=== PATIENT | male | born 1970 | race Caucasian/White ===

== ENCOUNTER 2023-06-28 10:50 | Inpatient (IN) | payer SELFPAY ==
[2023-06-28 10:52] VITALS: BP 127/85; PULSE 98; RESP 16; TEMP 35.8; O2SAT 96; BMI 36.6
--- NOTE | 2023-06-28 11:02 | EKG12_ITS ---
Test Reason : sob Blood Pressure : / mmHG Vent. Rate : 101 BPM Atrial Rate : 101 BPM P-R Int : 144 ms QRS Dur : 086 ms QT Int : 402 ms P-R-T Axes : 030 -28 -33 degrees QTc Int : 521 ms Sinus tachycardia T wave abnormality, consider anterior ischemia Abnormal ECG Confirmed by CORNELIO WINCHESTER ([id number]), medical transcription editor FREDA GAN ([id number]) on 07/01/2023 2:12:02 PM Referred By: Jorge Confirmed By:CORNELIO WINCHESTER
--- NOTE | 2023-06-28 11:03 | EX.ED.DYSGE1 ---
HPI <COLBY Santiago - Last Filed: 06/28/23 12:45> History of Present Illness Chief Complaint: Cough Narrative Narrative: 52-year-old male presents with 2 weeks of productive cough and dyspnea on exertion. His cough is worse in the morning. He denies fever chills but states he has had a lot of fatigue and congestion. He [id number] Mucinex without relief. He is from [facility] and states he has metastatic prostate cancer and had surgery about a year ago and now takes a medication for it. He is also on Xarelto for history of DVT. He denies history of smoking or asthma/COPD. No chest pain. PFSH <COLBY Santiago - Last Filed: 06/28/23 12:45> PFSH Allergy/AdvReac Type Severity Reaction Status Date / Time No Known Allergies Allergy Verified 06/28/23 10:54 Social History Smoking Status: Never smoker ROS <COLBY Santiago - Last Filed: 06/28/23 12:45> ROS ED ROS Narrative Constitutional: Negative for fever, chills. CVS: Negative for palpitations, chest pain, syncope. Respiratory: Positive for shortness of breath, cough. Negative for orthopnea. GI:Positive for diarrhea. Negative for abdominal pain, nausea, vomiting. Neuro: Negative for headache. Skin: Negative for rash. EXAM <COLBY Santiago - Last Filed: 06/28/23 12:45> Physical Exam Narrative Exam Narrative: CONST: Patient sitting in no acute distress. EYES: Normal inspection. NECK: Normal inspection. No JVD or retractions. RESP: No respiratory distress, CTAB. CVS: Regular rate and rhythm, no murmur, no gallop. SKIN: Color normal, no rash, warm, dry, intact. EXTREMITIES: Normal appearance, no pedal edema, no calf tenderness. NEURO: Oriented x4. PSYCH: Normal affect. Const Vital Signs: 06/28/23 10:52 06/28/23 10:51 06/28/23 11:22 Temperature 96.5 F L Temperature Source Temporal Pulse Rate 98 Respiratory Rate 16 Respiratory Effort Normal Short of Breath Respiratory Depth Normal Respiratory Pattern Normal Blood Pressure 127/85 H Blood Pressure Mean 99 Pulse Ox 96 Oxygen Delivery Method Room Air Room Air <Dr. Valentín Brown MD - Last Filed: 06/28/23 11:49> Physical Exam Const Vital Signs: 06/28/23 10:52 06/28/23 10:51 06/28/23 11:22 Temperature 96.5 F L Temperature Source Temporal Pulse Rate 98 Respiratory Rate 16 Respiratory Effort Normal Short of Breath Respiratory Depth Normal Respiratory Pattern Normal Blood Pressure 127/85 H Blood Pressure Mean 99 Pulse Ox 96 Oxygen Delivery Method Room Air Room Air [facility] <COLBY Santiago - Last Filed: 06/28/23 12:45> [facility] Narrative Medical decision making narrative: Patient was evaluated for cough and exertional dyspnea. He appears well and nontoxic. Vital signs within normal limits. He speaking in full sentences in no respiratory distress. Heart is regular rate and rhythm with no murmurs. Lungs clear. CBC and BMP unremarkable for creatinine of 1.35 with no prior for comparison. Troponin is 293. He has no chest pain but is having significant exertional dyspnea. His EKG is sinus tachycardia at 101 bpm with nonspecific T wave inversions. No STEMI criteria. CXR shows no acute process. Due to elevated troponin and exertional dyspnea patient will need admitted for cardiac work-up. I do not suspect PE as he has an IVC filter and is compliant with Xarelto. Telegraphic Service Dispatcher was paged and case discussed with hospitalist for admission. Differential: Viral URI, pneumonia, effusion, ACS I have personally performed a face to face assessment of the patient and have reviewed the ROBERT Note. I performed a substantive portion of the visit including all aspects of the following. My shah findings include: History is 52-year-old male history of prostate cancer with bony mets. On blood thinner secondary to DVT and has a filter. Complaining of cough and congestion. Really denies any chest pain. No hemoptysis. Says he is having exertional shortness of breath. No cardiac history. Non-smoker. Exam is [52-year-old male no acute distress. Vital signs stable afebrile. Pulse ox 96% on room air no hypoxia. H EENT exam unremarkable. Neck nontender no JVD. Lungs clear to auscultation bilaterally. Heart regular rhythm rate about 95 no murmur. Chest wall nontender. Abdomen soft nontender. Moving all 4 extremities. Calves are nontender without edema or cords. He is awake and alert. No focal motor deficits.] Medical Decision Making [52-year-old male with prostate CA with bony mets with shortness of breath. URI symptoms. Pneumonia versus anemia versus cardiac etiology versus other. He is already on blood thinners and has a Towner filter.] Other additions or changes: [None] Lab Data Labs: Laboratory Results - last 24 hr 06/28/23 11:10 WBC 10.2 RBC 5.15 Hgb 14.7 Hct 45.4 MCV 88.2 MCH 28.5 MCHC 32.4 RDW Std Deviation 46.5 H RDW Coeff of [place] 14.6 Plt Count 151 MPV 10.9 Immature Gran % (Auto) 1.400 H Neut % (Auto) 77.2 H Lymph % (Auto) 13.4 L [place] % (Auto) 7.4 Eos % (Auto) 0.2 Baso % (Auto) 0.4 Absolute Neuts (auto) 7.9 H Absolute Lymphs (auto) 1.37 Nucleated RBC % 0 Sodium 139 Potassium 4.3 Chloride 106 Carbon Dioxide 26.0 Anion Gap 7 BUN 25 H Creatinine 1.35 H Estim Creat Clear Calc 61.93 Est GFR (MDRD) Af Amer 71 Est GFR (MDRD) Non-Af 59 L BUN/Creatinine Ratio 18.5 Glucose 136 H Calcium 10.0 Troponin I High Sens 293 H* Radiography Diagnostic Testing: Clinical Impression(s) from Imaging Studies Chest X-Ray 06/28/23 11:28 IMPRESSION: Normal x-ray examination of the chest. Electronically Signed: Berhane Kee MD at 12:01 EDT , EKG Initial EKG: Attestation: I personally reviewed and interpreted this EKG as follows: Comments: Sinus tachycardia at 101 bpm Normal intervals, no STEMI criteria T wave inversions V1 through V4 Prior EKG tracings: not available for review <Dr. Valentín Brown MD - Last Filed: 06/28/23 11:49> [facility] Narrative Medical decision making narrative: I have personally performed a face to face assessment of the patient and have reviewed the ROBERT Note. I performed a substantive portion of the visit including all aspects of the following. My shah findings include: History is 52-year-old male history of prostate cancer with bony mets. On blood thinner secondary to DVT and has a filter. Complaining of cough and congestion. Really denies any chest pain. No hemoptysis. Says he is having exertional shortness of breath. No cardiac history. Non-smoker. Exam is [52-year-old male no acute distress. Vital signs stable afebrile. Pulse ox 96% on room air no hypoxia. H EENT exam unremarkable. Neck nontender no JVD. Lungs clear to auscultation bilaterally. Heart regular rhythm rate about 95 no murmur. Chest wall nontender. Abdomen soft nontender. Moving all 4 extremities. Calves are nontender without edema or cords. He is awake and alert. No focal motor deficits.] Medical Decision Making [52-year-old male with prostate CA with bony mets with shortness of breath. URI symptoms. Pneumonia versus anemia versus cardiac etiology versus other. He is already on blood thinners and has a Héctor filter.] Other additions or changes: [None] Lab Data Attestation: I reviewed the patient's lab results. Lab results narrative: CBC unremarkable. White count of 10. H&H 14 and 45. Platelets 151. Electrolytes unremarkable gap of 7. BUN of 25 creatinine 1.3. Glucose 136. His troponin is elevated to 93. Chest x-ray chronic changes no acute process. Normal cardiac silhouette mediastinum. Labs: Laboratory Results - last 24 hr 06/28/23 11:10 WBC 10.2 RBC 5.15 Hgb 14.7 Hct 45.4 MCV 88.2 MCH 28.5 MCHC 32.4 RDW Std Deviation 46.5 H RDW Coeff of [place] 14.6 Plt Count 151 MPV 10.9 Immature Gran % (Auto) 1.400 H Neut % (Auto) 77.2 H Lymph % (Auto) 13.4 L [place] % (Auto) 7.4 Eos % (Auto) 0.2 Baso % (Auto) 0.4 Absolute Neuts (auto) 7.9 H Absolute Lymphs (auto) 1.37 Nucleated RBC % 0 Sodium 139 Potassium 4.3 Chloride 106 Carbon Dioxide 26.0 Anion Gap 7 BUN 25 H Creatinine 1.35 H Estim Creat Clear Calc 61.93 Est GFR (MDRD) Af Amer 71 Est GFR (MDRD) Non-Af 59 L BUN/Creatinine Ratio 18.5 Glucose 136 H Calcium 10.0 Troponin I High Sens 293 H* Radiography Chest X-Ray - ED: 1 View, Read by ED Physician, Heart, Lungs, Mediastinum, Bony Structures, No Acute Disease and Chronic Changes Diagnostic Testing: Clinical Impression(s) from Imaging Studies Chest X-Ray 06/28/23 11:28 IMPRESSION: Normal x-ray examination of the chest. Electronically Signed: Berhane Kee MD at 12:01 EDT , Chest x-ray, portable, single view shows no acute abnormality. Normal cardiac silhouette. Normal mediastinum. No infiltrate. No effusions. Interpreted by myself. Rhythm Strip Rhythm Strip: Sinus Tach Rate: 101 Ectopy: None EKG Initial EKG: Interpretation: No Acute Injury Pattern and Sinus Tachycardia Discharge Plan Triage Chief Complaint: Cough Other Complaint: Chest Pain Shortness of Breath ED Midlevel Provider: Diana Vásquez ED Provider: Valentín Brown Dx/Rx/DC Orders Clinical Impression: Dyspnea on exertion, Non-ST elevation [place] (NSTEMI) Primary Care Provider: Care Physician,No Primary
[2023-06-28 11:21] LABS: Absolute Lymphocyte Count 1.37 X10^3/uL (0.83-4.51); Absolute Neutrophil Count 7.9 X10^3/uL (2.0-7.7); Basophil# 0.04 X10^3/uL; Basophil% 0.4 % (0-1); Eosinophil# 0.02 X10^3/uL; Eosinophils% 0.2 % (0-5); Hematocrit 45.4 % (40-54); Hemoglobin 14.7 g/dL (13.0-16.5); Lymphocyte # 1.37 X10^3/ul (0.83-4.51); Lymphocyte % 13.4 % (19-41); Mean Corp Hgb Conc 32.4 g/dL (32-36); Mean Corpuscular Hgb 28.5 pg (27.0-32.0); Mean Corpuscular Volume 88.2 fL (80-94); Mean Platelet Vol. 10.9 fl (6.2-12.0); Monocyte# 0.75 X10^3/uL; Monocyte% 7.4 % (0-10); NRBC Flagged by Analyzer 0 % (0-5); Neutrophil # 7.87 X10^3/uL (2.7-7.7); Neutrophil % 77.2 % (47-70); Platelet Count 151 K/mm3 (150-450); RBC Distribution Width CV 14.6 % (11.6-14.6); RBC Distribution Width SD 46.5 fl (35.1-43.9); Red Blood Count 5.15 M/mm3 (4.6-6.2); White Blood Count 10.2 K/mm3 (4.4-11.0)
--- NOTE | 2023-06-28 11:28 | RAD_ITS ---
STUDY: X-RAY CHEST REASON FOR EXAM: Male, 52 years old. Two-week history of cough and shortness of breath. TECHNIQUE: PA and lateral views of the chest. COMPARISON: None. FINDINGS: The lungs are clear and expanded. There is no demonstrated pleural abnormality. Normal size heart. Small calcified bilateral hilar lymph nodes. Calcified granuloma in the right upper lobe. Normal visualized pulmonary arteries. Normal visualized aortic arch and descending thoracic aorta. Normal visualized thoracic spine. Normal visualized ribs, clavicles, and shoulders. There is no demonstrated abnormality of the visualized soft tissue structures of the upper abdomen. RAD/Chest PA and Lateral IMPRESSION: Normal x-ray examination of the chest. Electronically Signed: Berhane Kee MD at 12:01 EDT ,
[2023-06-28 11:44] LABS: Anion Gap 7 (5-15); BUN 25 mg/dL (7-18); BUN/Creat Ratio 18.5 RATIO (10-20); Chloride 106 mmol/L (98-107); Creatinine, Serum 1.35 mg/dL (0.70-1.30); EST Glomerular Filtration Rate 59 mL/min (>60); Est Glom Filt Rate - Afr Amer 71 mL/min (>60); Estimated Creatinine Clearance 61.93 ml/min; Glucose 136 mg/dL (74-106); Potassium 4.3 mmol/L (3.5-5.1); Sodium Level 139 mmol/L (136-145); Troponin-I HS 293 pg/mL (3.0-78.0)
[2023-06-28 12:30] LABS: International Normalized Ratio 1.5
[2023-06-28 12:31] LABS: Partial Thromboplast Time 38.7 Seconds (24.1-36.2)
[2023-06-28 12:48] VITALS: BP 136/98; PULSE 89; RESP 19; TEMP 36.7; O2SAT 95
--- NOTE | 2023-06-28 13:02 | CT_ITS ---
STUDY: CTA CHEST REASON FOR EXAM: Male, 52 years old. R/O PE. Two-week history of cough with fever and chills. RADIATION DOSAGE (If Supplied By Facility): CTDIvol = ( 16.22 ) mGy, DLP = ( 600.41 ) mGycm TECHNIQUE: The examination was performed with the intravenous administration of IV 100mL Isovue-370. Post-processing of the angiographic images was performed, with multiplanar reformation and 3D reconstruction. Individualized dose optimization techniques were used for this CT. COMPARISON: None. FINDINGS: Normal enhancement of the main pulmonary artery and right and left pulmonary arteries. Normal enhancement of the bilateral peripheral pulmonary arteries. There is no demonstrated pulmonary embolism. Normal thoracic aorta and visualized great vessels. There is no demonstrated aortic dissection. Normal heart and pericardium. Normal mediastinum. Normal hilar regions. Normal visualized trachea and bronchi. The lungs are well expanded. Normal pulmonary parenchyma. Normal pleura. Normal chest wall structures. Sclerotic bony densities are seen in the lower cervical upper thoracic as well as upper lumbar vertebrae. Metastatic deposit should be ruled out. Calcified hepatic granulomas. CT/CTA Chest W/WO Contrast IMPRESSION: No evidence of pleural embolism. Findings suggestive of metastatic deposits involving the cervical and visualized thoracic vertebrae. Electronically Signed: Berhane Kee MD at 14:12 EDT ,
--- NOTE | 2023-06-28 13:02 | ECHOCS_ITS ---
Reason For Study: Chest Pain Procedure This was a 2D Doppler, Color Flow transthoracic echocardiogram. The study was technically difficult. Contrast injection was performed. Exam performed portable in patient room. Left Ventricle Normal left ventricle. The estimated ejection fraction is 55-60 %. Right Ventricle Mildly dilated right ventricle. Normal systolic function. Atria Normal left atrium. Normal right atrium. Mitral Valve The mitral valve is structurally normal. No prolapse or stenosis seen. Trivial mitral valve insufficiency. Tricuspid Valve Normal tricuspid valve. Mild tricuspid valve insufficiency. Aortic Valve Trisinus/trileaflet aortic valve. Trivial aortic valve insufficiency. Pulmonic Valve The pulmonic valve is not well visualized. Great Vessels Normal aortic root. Pericardium/Pleural No pericardial effusion. Medication Diluted definity 2ml given slow IV push to enhance endocardial definition. MMode/2D Measurements & Calculations LVIDd: 3.8 cm IVSd: 0.92 cm Ao root diam: 4.0 cm LVIDs: 2.9 cm LVPWd: 1.1 cm LA dimension: 3.4 cm RVDd: 4.4 cm FS: 23.9 % LAV(MOD-bp): 39.9 ml LVAd ap4: 29.6 cm2 SV(MOD-sp4): 53.7 ml LAV(MOD-bp) Indexed: 18.2 ml/m2 LVLd ap4: 8.3 cm LAV(MOD-sp2): 40.2 ml EDV(MOD-sp4): 87.3 ml LAV(MOD-sp4): 34.3 ml EDV(sp4-el): 90.2 ml LVAs ap4: 16.3 cm2 LVLs ap4: 6.5 cm ESV(MOD-sp4): 33.7 ml ESV(sp4-el): 34.5 ml EF(MOD-sp4): 61.5 % EF(sp4-el): 61.7 % SV(sp4-el): 55.7 ml LA A4 area: 15.4 cm2 RA A4 area: 19.9 cm2 Time Measurements MV dec time: 0.23 sec Doppler Measurements & Calculations MV E max derek: 40.3 cm/sec Lat Peak E' Derek: 11.7 cm/sec Med Peak E' Derek: 9.2 cm/sec MV A max derek: 68.0 cm/sec E/E' lat: 3.5 E/E' med: 4.4 MV E/A: 0.59 MV V2 max: 66.8 cm/sec MV P1/2t max derek: 38.8 cm/sec Ao V2 max: 112.5 cm/sec MV max P.8 mmHg MV P1/2t: 104.4 msec Ao max P.1 mmHg MV V2 mean: 34.3 cm/sec Ao V2 mean: 73.7 cm/sec MV mean P.55 mmHg MV dec slope: 108.7 cm/sec2 Ao mean P.5 mmHg MV V2 VTI: 12.7 cm MVA(P1/2t): 2.1 cm2 Ao V2 VTI: 16.4 cm AV (velocity ratio): 1.1 LV V1 max: 99.3 cm/sec PA V2 max: 56.8 cm/sec TR max derek: 283.1 cm/sec LV V1 max P.9 mmHg TR max P.1 mmHg LV V1 mean P.9 mmHg LV V1 mean: 64.6 cm/sec LV V1 VTI: 17.3 cm ECHO/Echo Complete W/ Contrast Interpretation Summary The estimated ejection fraction is 55-60 %. Overall normal LV systolic function Mild TR. Contrast echo using Definity which clearly delineated the endocardial borders Calculated normal LV systolic function with normal ejection fraction No prior echo to compare. Ordering Physician: Sawyer Gonzales Performed By: Rudolph Lopez, [facility]
[2023-06-28 13:04] VITALS: BMI 41.8
--- NOTE | 2023-06-28 13:34 | HP.PCM.HOS_ITS ---
HPI - General General Date of Admission: 06/28/23 HPI Narrative DANTE EAST, is a 52 M who presents to the hospital with cough and shortness of breath. No fevers or chills but has had about a 2-week period of productive cough. He is a non-smoker but a troponin was obtained in the absence of chest pain that was elevated to 293. EKG was also nonischemic. Chest x-ray was unremarkable. He states that he does have shortness of breath and lightheadedness with activity but even with activity does not have any chest pain. [facility] Medical History (Updated 06/28/23 @ 13:38 by Rhoda Ellison) DVT (deep venous thrombosis) Hip replacement planned Presence of IVC filter Prostate cancer Allergy/AdvReac Type Severity Reaction Status Date / Time No Known Allergies Allergy Verified 06/28/23 10:54 Family History Father Lung cancer Surgical History (Updated 06/28/23 @ 13:10 by Kailyn Rivera) History of hip replacement, total Social History Smoking Status: Never smoker ROS Constitutional Constitutional: Denies chills, fatigue, fever(s) or malaise Eyes Eyes: Denies blurry vision ENT HEENT: Denies headache(s) or nasal discharge Cardiovascular Cardiovascular: Reports lightheadedness; Denies chest pain, dyspnea on exertion or syncope Respiratory/Chest Respiratory/Chest: Reports cough, productive cough and shortness of breath with exertion; Denies shortness of breath at rest Gastrointestinal Gastrointestinal: Denies constipation, diarrhea, nausea or vomiting Genitourinary Genitourinary: Denies dysuria Neurologic Neurologic: Denies focal weakness, numbness or tremor(s) Psychiatric Psychiatric: Denies anxiety or depression Vital Signs Vital Signs Vital Signs: 06/28/23 10:52 06/28/23 10:51 06/28/23 11:22 Temperature 96.5 F L Temperature Source Temporal Pulse Rate 98 Respiratory Rate 16 Respiratory Effort Normal Short of Breath Respiratory Depth Normal Respiratory Pattern Normal Blood Pressure 127/85 H Blood Pressure Mean 99 Blood Pressure Source Blood Pressure Position Blood Pressure Location Pulse Ox 96 Oxygen Delivery Method Room Air Room Air 06/28/23 12:48 06/28/23 13:17 06/28/23 12:48 Temperature 98.1 F 98.1 F Temperature Source Oral Oral Pulse Rate 89 89 Respiratory Rate 19 H 19 H Respiratory Effort Short of Breath Respiratory Depth Normal Respiratory Pattern Normal Blood Pressure 136/98 H 136/98 H Blood Pressure Mean 110 110 Blood Pressure Source Monitor Blood Pressure Position Sitting Blood Pressure Location Right Arm Pulse Ox 95 95 Oxygen Delivery Method Room Air Room Air Room Air Weight Weight: 236 lb 1.6 oz Body Mass Index (BMI) 41.8 Physical Exam Narrative General: Alert, Oriented x3, Cooperative, No apparent distress HEENT: Atraumatic, PERRLA, EOMI, Normocephalic Oral: Moist Mucosa Neck: Supple, No JVD Lungs: Clear to auscultation, Normal air movement, No rhonchi, No wheeze, No rales Cardiovascular: Regular rate, Regular Rhythm, Normal S1, Normal S2, No murmurs Abdomen: Soft, Non Tender, Non-Distended, No Hepato-splenomegaly Extremities: No edema, Capillary Refill Less than 3 Seconds Skin: No rashes, No breakdown Musculoskeletal: No Tenderness to Palpation of Joints or Extremities Neurological: Cranial nerves II-XII grossly intact, Motor Exam 5/5 strength throughout, Sensory exam intact to light touch and pain Psych/Mental Status: Normal Affect, Appropriate Results Lab / Micro Data 06/28/23 11:10 06/28/23 11:10 Labs: Laboratory Results - last 24 hr 06/28/23 11:10: WBC 10.2, RBC 5.15, Hgb 14.7, Hct 45.4, MCV 88.2, MCH 28.5, MCHC 32.4, RDW Std Deviation 46.5 H, RDW Coeff of Sailaja 14.6, Plt Count 151, MPV 10.9, Immature Gran % (Auto) 1.400 H, Neut % (Auto) 77.2 H, Lymph % (Auto) 13.4 L, [place] % (Auto) 7.4, Eos % (Auto) 0.2, Baso % (Auto) 0.4, Absolute Neuts (auto) 7.9 H, Absolute Lymphs (auto) 1.37, Nucleated RBC % 0, Sodium 139, Potassium 4.3, Chloride 106, Carbon Dioxide 26.0, Anion Gap 7, BUN 25 H, Creatinine 1.35 H , Estim Creat Clear Calc 61.93, Est GFR (MDRD) Af Amer 71, Est GFR (MDRD) Non-Af 59 L, BUN/Creatinine Ratio 18.5, Glucose 136 H, Calcium 10.0, Troponin I High Sens 293 H* 06/28/23 12:12: PT 18.0 H, INR 1.5, APTT 38.7 H Micro: Microbiology 06/28/23 11:10 Nasal Secretion SARS-CoV-2 & FLU Antigen (Rapid) - Final Rhythm Strip Rhythm Strip: Sinus Tach Rate: 101 Ectopy: None Radiology Impression Chest X-Ray 06/28/23 11:28 IMPRESSION: Normal x-ray examination of the chest. Electronically Signed: Berhane Kee MD at 12:01 EDT , Assessment & Plan Assessment/Plan (1) Non-ST elevation [place] (NSTEMI): PLAN: Plan 1. Non-STEMI ? We will consult cardiology ? We will place him on a heparin drip ? We will start him on aspirin ? We will obtain a lipid panel in the morning 2. Metastatic prostate cancer with history of DVT ? He took his Xarelto this morning which is why he cannot proceed with a heart cath this afternoon ? Can continue to hold his Xarelto until discharge ? He does have an IVC filter and so he would have to have a wrist approach for the cath ? Received his hormone therapy for the metastatic prostate cancer from the cancer [place] in [place] DVT: Heparin drip neck 75 minutes was spent on direct patient care, including documentation as well as chart review and collaboration with colleagues Charges/Coding Visit Charges Inpatient E&M: 70999 Init Hosp L3
--- NOTE | 2023-06-28 14:46 | PCM.CONS.C ---
Documented by User: Chelsie BOWMAN, PA 06/28/23 14:56 Assessment & Plan Assessment/Plan (1) Non-ST elevation [place] (NSTEMI): (2) Dyspnea on exertion: PLAN: Plan Pt does elevated troponin, will continue to trend and cycle troponin Will obtain a CTA to r/o PE. Will obtain echo Pt did take xarelto today, since he currently does not have CP, will likely pursue heart cath on Saturday. HPI Consult Data Date of Consult: 06/28/23 HPI Narrative HPI Narrative: DANTE EAST, is a 52 M who presented to [facility] ER for cough and CARUSO for the last 2 weeks. Today it has gotten worse. He has had a lot of fatigue and congestion. 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 He does have a hx of metastatic prostate cancer and DVT in which he is on Xarelto. He did take that this morning. [facility] Medical History (Updated 06/28/23 @ 13:38 by Rhoda Ellison) DVT (deep venous thrombosis) Hip replacement planned Presence of IVC filter Prostate cancer Home Medications abiraterone 500 mg tablet 1,000 mg PO DAILY CANCER 06/28/23 [History Last Taken 06/27/23 22:00] ascorbate calcium (vitamin C) 500 mg tablet 500 mg PO DAILY VIT C 06/28/23 [History Last Taken 06/27/23 18:00] calcium carbonate 600 mg calcium (1,500 mg) tablet (Calcium) 1,200 mg PO DAILY calcium deficiency 06/28/23 [History Last Taken 06/28/23] cholecalciferol (vitamin D3) 50 mcg (2,000 unit) capsule 50 mcg PO DAILY VIT d 06/28/23 [History Last Taken 06/28/23] lisinopril 10 mg tablet 10 mg PO DAILY BLOOD PRESSURE 06/28/23 [History Last Taken 06/27/23 18:00] magnesium oxide 500 mg tablet 500 mg PO DAILY MAGNESIUM 06/28/23 [History Last Taken 06/27/23 18:00] potassium gluconate 595 mg (99 mg) tablet 595 mg PO DAILY POTASSIUM 06/28/23 [History Last Taken 06/27/23 18:00] prednisone 5 mg tablet 5 mg PO Q12H inflammation 06/28/23 [History Last Taken 06/28/23] rivaroxaban 10 mg tablet (Xarelto) 10 mg PO DAILY BLOOD THINNER 06/28/23 [History Last Taken 06/28/23] Allergy/AdvReac Type Severity Reaction Status Date / Time No Known Allergies Allergy Verified 06/28/23 10:54 Family History Father Lung cancer Surgical History (Updated 06/28/23 @ 13:10 by Kailyn Rivera) History of hip replacement, total Social History Smoking Status: Never smoker ROS Constitutional Constitutional: Reports fatigue; Denies chills, fever(s) or malaise Eyes Eyes: Denies blurry vision ENT HEENT: Denies headache(s) or nasal discharge Cardiovascular Cardiovascular: Reports dyspnea on exertion; Denies chest pain or syncope Respiratory/Chest Respiratory/Chest: Reports cough, shortness of breath at rest and shortness of breath with exertion Gastrointestinal Gastrointestinal: Denies constipation, diarrhea, nausea or vomiting Genitourinary Genitourinary: Denies dysuria Neurologic Neurologic: Denies focal weakness, numbness or tremor(s) Psychiatric Psychiatric: Denies anxiety or depression Physical Exam Const alert, oriented x3, no apparent distress and healthy appearing HEENT normocephalic, head/scalp atraumatic, hearing grossly normal bilaterally, external ears normal, external nose normal and moist oral mucous membranes Eyes PERRL, EOMs intact bilaterally, conjunctivae normal and no scleral icterus Neck no lymphadenopathy, supple and no JVD Resp normal respiratory effort and clear to auscultation bilaterally Cardio regular rate, regular rhythm, S1 normal heart sound, S2 normal heart sound, no murmurs, no rub, no gallops, no clicks, no JVD and peripheral pulses 2+ throughout GI normal to inspection, nondistended, normoactive bowel sounds, soft to palpation, non-tender and non-distended Extremity normal to inspection, normal capillary refill, no clubbing, cyanosis or edema and no pedal edema Neuro oriented x3, CN's II-XII intact bilaterally, moves all extremities and no focal motor deficits Psych cooperative and affect normal Risk Stratification Risk Stratification Applicable: Yes Age >/= 65: No >/= 3 CAD Risk Factors (HTN, HLD, DM, family hx of CAD, or current smoker): Yes Aspirin Use in the Past 7 Days: No Severe Angina (>/= episodes in 24 hours): No EKG ST Changes >/= 0.5mm: Yes Positive Cardiac Marker: Yes FANTA Risk Stratification Score: 3 FANTA % Risk: 13% Risk Charges/Coding Visit Charges Office Visits / Consults: 77095 IP Consult L4 Objective Data Vital Signs: Vital Signs Temp Pulse Resp BP Pulse Ox O2 Del Method 98.1 F 89 19 H 136/98 H 95 Room Air 06/28/23 12:48 06/28/23 12:48 06/28/23 12:48 06/28/23 12:48 06/28/23 12:48 06/28/23 13:17 Oxygen Delivery Method Room Air Weight: 236 lb 1.6 oz Body Mass Index (BMI) 41.8 Lab / Micro Data 06/28/23 11:10 06/28/23 11:10 Labs: Laboratory Results - last 24 hr 06/28/23 11:10: WBC 10.2, RBC 5.15, Hgb 14.7, Hct 45.4, MCV 88.2, MCH 28.5, MCHC 32.4, RDW Std Deviation 46.5 H, RDW Coeff of Sailaja 14.6, Plt Count 151, MPV 10.9, Immature Gran % (Auto) 1.400 H, Neut % (Auto) 77.2 H, Lymph % (Auto) 13.4 L, Potter % (Auto) 7.4, Eos % (Auto) 0.2, Baso % (Auto) 0.4, Absolute Neuts (auto) 7.9 H, Absolute Lymphs (auto) 1.37, Nucleated RBC % 0, Sodium 139, Potassium 4.3, Chloride 106, Carbon Dioxide 26.0, Anion Gap 7, BUN 25 H, Creatinine 1.35 H, Estim Creat Clear Calc 61.93, Est GFR (MDRD) Af Amer 71, Est GFR (MDRD) Non-Af 59 L, BUN/Creatinine Ratio 18.5, Glucose 136 H, Calcium 10.0, Troponin I High Sens 293 H* 06/28/23 12:12: PT 18.0 H, INR 1.5, APTT 38.7 H Micro: Microbiology 06/28/23 11:10 Nasal Secretion SARS-CoV-2 & FLU Antigen (Rapid) - Final Rhythm Strip Rhythm Strip: Sinus Tach Rate: 101 Ectopy: None Cardiology Labs/Tests 06/28/23 11:10: WBC 10.2, RBC 5.15, Hgb 14.7, Hct 45.4, MCV 88.2, MCH 28.5, MCHC 32.4, Plt Count 151, MPV 10.9, Immature Gran % (Auto) 1.400 H, Neut % (Auto) 77.2 H, Lymph % (Auto) 13.4 L, Potter % (Auto) 7.4, Eos % (Auto) 0.2, Baso % (Auto) 0.4, Absolute Neuts (auto) 7.9 H, Nucleated RBC % 0, Sodium 139, Potassium 4.3, Chloride 106, Carbon Dioxide 26.0, Anion Gap 7, BUN 25 H, Creatinine 1.35 H, Est GFR (MDRD) Af Amer 71, Est GFR (MDRD) Non-Af 59 L, BUN/Creatinine Ratio 18.5, Glucose 136 H, Calcium 10.0 06/28/23 12:12: PT 18.0 H, INR 1.5, APTT 38.7 H Radiography Diagnostic Testing: Radiology Impression Chest X-Ray 06/28/23 11:28 IMPRESSION: Normal x-ray examination of the chest. Electronically Signed: Berhane Kee MD at 12:01 EDT , Chest CTA 06/28/23 13:02 IMPRESSION: No evidence of pleural embolism. Findings suggestive of metastatic deposits involving the cervical and visualized thoracic vertebrae. Electronically Signed: Berhane Kee MD at 14:12 EDT , Documented by User: Dr. Sawyer Gonzales MD 06/28/23 15:53 Assessment & Plan Assessment/Plan (1) Non-ST elevation TN (NSTEMI): (2) Dyspnea on exertion: PLAN: Plan Pt does elevated troponin, will continue to trend and cycle troponin Will obtain a CTA to r/o PE. Will obtain echo Pt did take xarelto today, since he currently does not have CP, will likely pursue heart cath on Saturday. I independently, reviewed all the record of this patient including the EKG, imaging studies, current cardiac lab results And I formulated cardiac care plan as per midlevel note and documentation. We will continue to monitor and follow-up clinically. Anticoagulation Xarelto on hold and patient started on heparin. Based on his clinical presentation and abnormal EKG and elevated high sensitive troponin we will plan to schedule for cardiac catheterization on Saturday. Patient is scheduled for CTA study to assess for PE and evaluate ascending aorta. Sawyer Gonzales MD,[facility] HPI Consult Data Date of Consult: 06/28/23 [facility] Medical History (Updated 06/28/23 @ 13:38 by Rhoda Ellison) DVT (deep venous thrombosis) Hip replacement planned Presence of IVC filter Prostate cancer Home Medications abiraterone 500 mg tablet 1,000 mg PO DAILY CANCER 06/28/23 [History Last Taken 06/27/23 22:00] ascorbate calcium (vitamin C) 500 mg tablet 500 mg PO DAILY VIT C 06/28/23 [History Last Taken 06/27/23 18:00] calcium carbonate 600 mg calcium (1,500 mg) tablet (Calcium) 1,200 mg PO DAILY calcium deficiency 06/28/23 [History Last Taken 06/28/23] cholecalciferol (vitamin D3) 50 mcg (2,000 unit) capsule 50 mcg PO DAILY VIT d 06/28/23 [History Last Taken 06/28/23] lisinopril 10 mg tablet 10 mg PO DAILY BLOOD PRESSURE 06/28/23 [History Last Taken 06/27/23 18:00] magnesium oxide 500 mg tablet 500 mg PO DAILY MAGNESIUM 06/28/23 [History Last Taken 06/27/23 18:00] potassium gluconate 595 mg (99 mg) tablet 595 mg PO DAILY POTASSIUM 06/28/23 [History Last Taken 06/27/23 18:00] prednisone 5 mg tablet 5 mg PO Q12H inflammation 06/28/23 [History Last Taken 06/28/23] rivaroxaban 10 mg tablet (Xarelto) 10 mg PO DAILY BLOOD THINNER 06/28/23 [History Last Taken 06/28/23] Allergy/AdvReac Type Severity Reaction Status Date / Time No Known Allergies Allergy Verified 06/28/23 10:54 Family History Father Lung cancer Surgical History (Updated 06/28/23 @ 13:10 by Kailyn Rivera) History of hip replacement, total Social History Smoking Status: Never smoker Risk Stratification Age >/= 65: No FANTA Risk Stratification Score: 3 FANTA % Risk: 13% Risk Lab / Micro Data 06/28/23 11:10 06/28/23 11:10
[2023-06-28 14:57] LABS: Troponin-I HS 251 pg/mL (3.0-78.0)
[2023-06-28] MEDS: Heparin Injection (Vial) 5,000 UNIT/ML VIAL 4000 UNIT IV (15:18)
[2023-06-28] MEDS: HEPARIN/D5w 25,000 UNITS 25,000 UNITS/250 ML IV.SOLN. 10 UNITS CONT INF (15:19)
[2023-06-28] MEDS: 0.9% Saline Lock 10 ML Syringe IV ×2 (15:21→18:51)
[2023-06-28] MEDS: Ibuprofen 200 MG Tablet PO (17:11)
[2023-06-28 17:57] LABS: Troponin-I HS 288 pg/mL (3.0-78.0)
[2023-06-28 18:45] VITALS: BP 92/60; PULSE 97; RESP 20; TEMP 36.6; O2SAT 94
[2023-06-28] MEDS: Ketorolac 15 MG/ML Vial IV (18:51)
--- NOTE | 2023-06-28 18:57 | NURSING ---
Reviewed charting with Venice Rivera RN
[2023-06-28] MEDS: guaiFENesin 1,200 MG Tablet 1200 MG PO (21:46)
[2023-06-28 21:50] VITALS: O2SAT 86
[2023-06-28 21:55] VITALS: BP 112/81; PULSE 88; RESP 16; TEMP 37; O2SAT 92
[2023-06-29] VITALS (10 sets, daily range): BP systolic 111–137; BP diastolic 78–100; PULSE 81–103; RESP 14–18; TEMP 36.1–37.7; O2SAT 88–97
[2023-06-29 06:10] LABS: Absolute Lymphocyte Count 1.35 X10^3/uL (0.83-4.51); Absolute Neutrophil Count 6.2 X10^3/uL (2.0-7.7); Basophil# 0.05 X10^3/uL; Basophil% 0.6 % (0-1); Eosinophil# 0.08 X10^3/uL; Eosinophils% 0.9 % (0-5); Hematocrit 39.2 % (40-54); Lymphocyte # 1.35 X10^3/ul (0.83-4.51); Lymphocyte % 15.3 % (19-41); Mean Corp Hgb Conc 33.2 g/dL (32-36); Mean Corpuscular Hgb 29.1 pg (27.0-32.0); Mean Corpuscular Volume 87.9 fL (80-94); Mean Platelet Vol. 11.9 fl (6.2-12.0); Monocyte# 1.02 X10^3/uL; Monocyte% 11.6 % (0-10); NRBC Flagged by Analyzer 0 % (0-5); Neutrophil # 6.15 X10^3/uL (2.7-7.7); Neutrophil % 69.8 % (47-70); POSITIVE COUNT YES; Platelet Count 90 K/mm3 (150-450); RBC Distribution Width CV 14.6 % (11.6-14.6); RBC Distribution Width SD 45.8 fl (35.1-43.9); Red Blood Count 4.46 M/mm3 (4.6-6.2); White Blood Count 8.8 K/mm3 (4.4-11.0)
[2023-06-29 06:11] LABS: Differential Indicated SCAN CRITERIA MET
[2023-06-29 06:17] LABS: Partial Thromboplast Time 77.2 Seconds (24.1-36.2)
[2023-06-29 06:35] LABS: Differential Comment SCANNED; Platelet Estimate SLT DEC (ADEQ)
[2023-06-29 06:41] LABS: Anion Gap 6 (5-15); BUN 20 mg/dL (7-18); BUN/Creat Ratio 20.7 RATIO (10-20); Calcium,Total 8.1 mg/dL (8.5-10.1); Chloride 110 mmol/L (98-107); Cholesterol 106 mg/dL (200); Creatinine, Serum 0.97 mg/dL (0.70-1.30); EST Glomerular Filtration Rate 86 mL/min (>60); Est Glom Filt Rate - Afr Amer 105 mL/min (>60); Glucose 95 mg/dL (74-106); High Density Lipoprotein 52 mg/dL; Potassium 3.9 mmol/L (3.5-5.1); Sodium Level 138 mmol/L (136-145); Triglycerides 77 mg/dL; Very Low Density Lipoprotein 15 mg/dL (5-40)
[2023-06-29] MEDS: Aspirin 81 MG TAB.CHEW PO (08:24)
[2023-06-29] MEDS: Ibuprofen 200 MG Tablet PO (08:24)
[2023-06-29] MEDS: guaiFENesin 1,200 MG Tablet 1200 MG PO ×2 (08:24→21:07)
[2023-06-29] MEDS: Lisinopril 10 MG Tablet PO (08:30)
--- NOTE | 2023-06-29 10:25 | CASEMGMT ---
FERNANDO PETERSON Assessment: Face to Face with pt for initial transition planning/care coordination assessment. RN NICHOLAS introduced self and role at [facility], pt voices understanding and consents to assessment. Pt is A/O x4 and answers all questions appropriately at this time. Pt sitting up in chair in no distress. Care providers, pharmacy, and demographics verified/updated. Admitting Dx: NSTEMI PCP:No PCP, pt denies need for list. States he has a PCP in [place]. 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 Pt reports he is I in ADL's and denies concerns at home. Transportation: Pt drives self and denies concerns with transportation. DME/HHC/SNF: Pt denies having any DME in the home, previous HHC or SNF stays. Pt states no concerns with going home at time of dc. Pt states no further concerns/needs. Pt to have heart cath on Saturday. CM to follow. Advised pt to ask CM if any further question/concerns/needs arise, voices understanding. Pt Goal: Home Plan: Home
--- NOTE | 2023-06-29 11:37 | PN.HOSP_ITS ---
Subjective Subjective Doing well, no issues overnight. Continues to have back pain from his metastatic prostate cancer. Cough is improving slightly Objective Data Objective Data Vital Signs: Vital Signs Temp Pulse Resp BP Pulse Ox O2 Del Method O2 Flow Rate 97.0 F L 82 16 137/100 H 94 Nasal Cannula 2 06/29/23 08:23 06/29/23 08:23 06/29/23 08:23 06/29/23 08:23 06/29/23 08:35 06/29/23 08:35 06/29/23 08:35 Oxygen Flow Rate (L/min) 2 Oxygen Delivery Method Nasal Cannula Weight: 236 lb 1.6 oz Body Mass Index (BMI) 41.8 Intake & Output: Intake and Output for Last 24 Hours 06/28/23 06/29/23 06/30/23 03:59 03:59 03:59 Intake Total 810.17 / 810.17 372 / 372 Balance 810.17 / 810.17 372 / 372 Lab / Micro Data 06/29/23 05:33 06/29/23 05:33 Labs: Laboratory Results - last 24 hr 06/28/23 11:10: Sodium 139, Potassium 4.3, Chloride 106, Carbon Dioxide 26.0, Anion Gap 7, BUN 25 H, Creatinine 1.35 H, Estim Creat Clear Calc 61.93, Est GFR (MDRD) Af Amer 71, Est GFR (MDRD) Non-Af 59 L, BUN/Creatinine Ratio 18.5, Glucose 136 H, Calcium 10.0, Troponin I High Sens 293 H* 06/28/23 12:12: PT 18.0 H, INR 1.5, APTT 38.7 H 06/28/23 13:27: Troponin I High Sens 251 H* 06/28/23 16:56: Troponin I High Sens 288 H* 06/28/23 21:18: APTT 76.0 H 06/29/23 05:33: WBC 8.8, RBC 4.46 L, Hgb 13.0, Hct 39.2 L, MCV 87.9, MCH 29.1, MCHC 33.2, RDW Std Deviation 45.8 H, RDW Coeff of Sailaja 14.6, Plt Count 90 L, MPV 11.9, Immature Gran % (Auto) 1.800 H, Neut % (Auto) 69.8, Lymph % (Auto) 15.3 L, Mckinley % (Auto) 11.6 H, Eos % (Auto) 0.9, Baso % (Auto) 0.6, Absolute Neuts (auto) 6.2, Absolute Lymphs (auto) 1.35, Nucleated RBC % 0, Differential Comment SCAN KRISTI, Platelet Estimate SLT DEC, APTT 77.2 H, Sodium 138, Potassium 3.9, Chloride 110 H, Carbon Dioxide 22.0, Anion Gap 6, BUN 20 H, Creatinine 0.97, Estim Creat Clear Calc 68.80, Est GFR (MDRD) Af Amer 105, Est GFR (MDRD) Non-Af 86, BUN/Creatinine Ratio 20.7 H, Glucose 95, Calcium 8.1 L, Triglycerides 77, Cholesterol 106, LDL Cholesterol 39, VLDL Cholesterol 15, HDL Cholesterol 52 Micro: Microbiology 06/28/23 11:10 Nasal Secretion SARS-CoV-2 & FLU Antigen (Rapid) - Final Radiography Diagnostic Testing: Radiology Impression Chest X-Ray 06/28/23 11:28 IMPRESSION: Normal x-ray examination of the chest. Electronically Signed: Berhane Kee MD at 12:01 EDT , Chest CTA 06/28/23 13:02 IMPRESSION: No evidence of pleural embolism. Findings suggestive of metastatic deposits involving the cervical and visualized thoracic vertebrae. Electronically Signed: Berhane Kee MD at 14:12 EDT , Echocardiogram 06/28/23 13:02 Interpretation Summary The estimated ejection fraction is 55-60 %. Overall normal LV systolic function Mild TR. Contrast echo using Definity which clearly delineated the endocardial borders Calculated normal LV systolic function with normal ejection fraction No prior echo to compare. Ordering Physician: Sawyer Gonzales Performed By: Rudolph Lopez [facility] Rhythm Strip Rhythm Strip: Sinus Tach Rate: 101 Ectopy: None Physical Exam Narrative General: Alert, Oriented x3, Cooperative, No apparent distress HEENT: Atraumatic, PERRLA, EOMI, Normocephalic Oral: Moist Mucosa Neck: Supple, No JVD Lungs: Clear to auscultation, Normal air movement, No rhonchi, No wheeze, No rales Cardiovascular: Regular rate, Regular Rhythm, Normal S1, Normal S2, No murmurs Abdomen: Soft, Non Tender, Non-Distended, No Hepato-splenomegaly Extremities: No edema, Capillary Refill Less than 3 Seconds Skin: No rashes, No breakdown Musculoskeletal: No Tenderness to Palpation of Joints or Extremities Neurological: Cranial nerves II-XII grossly intact, Motor Exam 5/5 strength throughout, Sensory exam intact to light touch and pain Psych/Mental Status: Normal Affect, Appropriate Assessment & Plan Assessment/Plan (1) Non-ST elevation [place] (NSTEMI): PLAN: Plan 1. Non-STEMI ? We will consult cardiology ? We will place him on a heparin drip ? We will start him on aspirin ? Triglycerides of 77 with an LDL of 39 and an HDL of 52 2. Metastatic prostate cancer with history of DVT ? He took his Xarelto this morning which is why he cannot proceed with a heart cath this afternoon ? Can continue to hold his Xarelto until discharge ? He does have an IVC filter and so he would have to have a wrist approach for the cath ? Received his hormone therapy for the metastatic prostate cancer from the cancer [facility] in [place] DVT: Heparin drip Charges/Coding Visit Charges Inpatient E&M: 54242 Subs Hosp L2
[2023-06-29] MEDS: Ketorolac 15 MG/ML Vial IV ×2 (11:53→21:06)
--- NOTE | 2023-06-29 12:07 | CASEMGMT ---
Social Work SW met w/pt in room, as pt is listed as self pay. Pt states moved here from [place] just four weeks ago for his work. He states qualifies for assist from a hospital there and this is where he is getting his cancer treatment, he qualifies for assistance there. SW gave pt resources, including information on [facility] assist, [employer], Brittany Sanon, [employer], prescription assist, 211, and the [employer] card. Pt would be interested in speaking w/someone about applying for Medicaid, SW explained will refer him to [facility]. SW sent an email to [facility] referring pt. No further social service needs are anticipated at this time. MITUL Zaragoza
[2023-06-29 12:54] LABS: Partial Thromboplast Time 58.9 Seconds (24.1-36.2)
--- NOTE | 2023-06-29 13:38 | CT_ITS ---
STUDY: CT BRAIN WITHOUT CONTRAST REASON FOR EXAM: Male, 52 years old. Facial numbness, dizziness RADIATION DOSAGE (If Supplied By Facility): CTDIvol = ( 44.99 ) mGy, DLP = ( 829.85 ) mGycm TECHNIQUE: Transaxial CT imaging of the brain was performed without administration of intravenous contrast material. Individualized dose optimization techniques were used for this CT. COMPARISON: No relevant priors. FINDINGS: Normal soft tissue structures. Normal calvarium. Normal size ventricles and extra-axial spaces for the patient''s age. Normal white matter tracts of the cerebral hemispheres. Normal basal ganglia and thalami. Normal brainstem. Normal cerebellum. There is no intracranial hemorrhage. There are no findings of an acute ischemic infarction. Normal visualized paranasal sinuses. CT/Brain/Head without Contrast IMPRESSION: Normal unenhanced CT scan of the brain. Electronically Signed: Elliot Vieyra MD at 14:09 EDT ,
--- NOTE | 2023-06-29 15:04 | PN.CARD_ITS ---
Subjective Subjective Seen and evaluated at bedside Symptoms of shortness of breath is improving No active chest pain reported. Objective Data Vital Signs: Vital Signs Temp Pulse Resp BP Pulse Ox O2 Del Method O2 Flow Rate 98.3 F 94 16 124/81 H 94 Nasal Cannula 2 06/29/23 13:36 06/29/23 13:36 06/29/23 13:36 06/29/23 13:36 06/29/23 14:00 06/29/23 14:00 06/29/23 14:00 Oxygen Flow Rate (L/min) 2 Oxygen Delivery Method Nasal Cannula Weight: 236 lb 1.6 oz Body Mass Index (BMI) 41.8 Intake & Output: Intake and Output for Last 24 Hours 06/27/23 06/28/23 06/29/23 23:59 23:59 23:59 Intake Total 570.17 / 810.17 612 / 612 Balance 570.17 / 810.17 612 / 612 Lab / Micro Data 06/29/23 05:33 06/29/23 05:33 Labs: Laboratory Results - last 24 hr 06/28/23 16:56: Troponin I High Sens 288 H* 06/28/23 21:18: APTT 76.0 H 06/29/23 05:33: WBC 8.8, RBC 4.46 L, Hgb 13.0, Hct 39.2 L, MCV 87.9, MCH 29.1, MCHC 33.2, RDW Std Deviation 45.8 H, RDW Coeff of Sailaja 14.6, Plt Count 90 L, MPV 11.9, Immature Gran % (Auto) 1.800 H, Neut % (Auto) 69.8, Lymph % (Auto) 15.3 L, Carter % (Auto) 11.6 H, Eos % (Auto) 0.9, Baso % (Auto) 0.6, Absolute Neuts (auto) 6.2, Absolute Lymphs (auto) 1.35, Nucleated RBC % 0, Differential Comment SC ANNED, Platelet Estimate SLT DEC, APTT 77.2 H, Sodium 138, Potassium 3.9, Chloride 110 H, Carbon Dioxide 22.0, Anion Gap 6, BUN 20 H, Creatinine 0.97, Estim Creat Clear Calc 68.80, Est GFR (MDRD) Af Amer 105, Est GFR (MDRD) Non-Af 86, BUN/Creatinine Ratio 20.7 H, Glucose 95, Calcium 8.1 L, Triglycerides 77, Cholesterol 106, LDL Cholesterol 39, VLDL Cholesterol 15, HDL Cholesterol 52 06/29/23 12:35: APTT 58.9 H Micro: Microbiology 06/28/23 11:10 Nasal Secretion SARS-CoV-2 & FLU Antigen (Rapid) - Final Rhythm Strip Rhythm Strip: Sinus Tach Rate: 101 Ectopy: None Cardiology Labs/Tests 06/28/23 21:18: APTT 76.0 H 06/29/23 05:33: WBC 8.8, RBC 4.46 L, Hgb 13.0, Hct 39.2 L, MCV 87.9, MCH 29.1, MCHC 33.2, Plt Count 90 L, MPV 11.9, Immature Gran % (Auto) 1.800 H, Neut % (Auto) 69.8, Lymph % (Auto) 15.3 L, Carter % (Auto) 11.6 H, Eos % (Auto) 0.9, Baso % (Auto) 0.6, Absolute Neuts (auto) 6.2, Nucleated RBC % 0, APTT 77.2 H, Sodium 138, Potassium 3.9, Chloride 110 H, Carbon Dioxide 22.0, Anion Gap 6, BUN 20 H, Creatinine 0.97, Est GFR (MDRD) Af Amer 105, Est GFR (MDRD) Non-Af 86, BUN/Creatinine Ratio 20.7 H, Glucose 95, Calcium 8.1 L, Triglycerides 77, Cholesterol 106, LDL Cholesterol 39, VLDL Cholesterol 15, HDL Cholesterol 52 06/29/23 12:35: APTT 58.9 H Rhythm: Underlying cardiac rhythm is normal sinus rhythm Radiography Diagnostic Testing: Radiology Impression Echocardiogram 06/28/23 13:02 Interpretation Summary The estimated ejection fraction is 55-60 %. Overall normal LV systolic function Mild TR. Contrast echo using Definity which clearly delineated the endocardial borders Calculated normal LV systolic function with normal ejection fraction No prior echo to compare. Ordering Physician: Sawyer Gonzales Performed By: Rudolph Lopez RCS Brain CT 06/29/23 13:38 IMPRESSION: Normal unenhanced CT scan of the brain. Electronically Signed: Elliot Vieyra MD at 14:09 EDT Reading Location ID and State: [facility] / [place] , Service support , Physical Exam Cardio Cardio Narrative: Underlying cardiac rhythm is normal sinus Cardiovascular exam S1-S2 regular No systolic or diastolic murmur Chest exam clear to auscultation bilateral Diminished lower extremity no lower extremity edema.. 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 Cardiac care plan recommendations; Patient admitted that his symptoms of shortness of breath is improving with the current treatment and I think the next. I reviewed and discussed his current medication we will continue current treatment I scheduled the patient for cardiac catheterization to evaluate for coronary artery disease and identified the culprit and discussed myocardial revascularization Based on the cardiac cath. I will continue current medical treatment and patient is scheduled for cardiac cath on Saturday.
[2023-06-29 19:03] LABS: Partial Thromboplast Time 56.3 Seconds (24.1-36.2)
--- NOTE | 2023-06-29 20:00 | NURSING ---
ekg obtained d/t some noted tele changes. ekg is consistent with previous result.
[2023-06-29] MEDS: HEPARIN/D5w 25,000 UNITS 25,000 UNITS/250 ML IV.SOLN. 8 UNITS CONT INF (20:06)
[2023-06-29] MEDS: 0.9% Saline Lock 10 ML Syringe IV (21:14)
[2023-06-30] VITALS (9 sets, daily range): BP systolic 111–124; BP diastolic 65–89; PULSE 88–110; RESP 17–18; TEMP 36.6–37.2; O2SAT 90–94
[2023-06-30 01:14] LABS: Partial Thromboplast Time 63.3 Seconds (24.1-36.2)
[2023-06-30] MEDS: traMADol 50 MG Tablet 25 MG PO (01:42)
[2023-06-30 07:09] LABS: Absolute Lymphocyte Count 1.27 X10^3/uL (0.83-4.51); Absolute Neutrophil Count 6.6 X10^3/uL (2.0-7.7); Basophil# 0.04 X10^3/uL; Basophil% 0.4 % (0-1); Eosinophil# 0.04 X10^3/uL; Eosinophils% 0.4 % (0-5); Hematocrit 37.9 % (40-54); Hemoglobin 12.5 g/dL (13.0-16.5); Lymphocyte # 1.27 X10^3/ul (0.83-4.51); Lymphocyte % 13.9 % (19-41); Mean Corpuscular Hgb 28.8 pg (27.0-32.0); Mean Corpuscular Volume 87.3 fL (80-94); Mean Platelet Vol. 11.2 fl (6.2-12.0); Monocyte# 1.04 X10^3/uL; Monocyte% 11.4 % (0-10); NRBC Flagged by Analyzer 0 % (0-5); Neutrophil # 6.59 X10^3/uL (2.7-7.7); Neutrophil % 72.5 % (47-70); POSITIVE COUNT YES; Platelet Count 95 K/mm3 (150-450); RBC Distribution Width CV 14.5 % (11.6-14.6); RBC Distribution Width SD 45.1 fl (35.1-43.9); Red Blood Count 4.34 M/mm3 (4.6-6.2); White Blood Count 9.1 K/mm3 (4.4-11.0)
[2023-06-30 07:16] LABS: Partial Thromboplast Time 63.6 Seconds (24.1-36.2)
[2023-06-30 07:20] LABS: Anion Gap 5 (5-15); BUN 19 mg/dL (7-18); BUN/Creat Ratio 21.2 RATIO (10-20); Calcium,Total 8.1 mg/dL (8.5-10.1); Chloride 109 mmol/L (98-107); EST Glomerular Filtration Rate 94 mL/min (>60); Est Glom Filt Rate - Afr Amer 114 mL/min (>60); Estimated Creatinine Clearance 74.15 ml/min; Glucose 103 mg/dL (74-106); Potassium 3.7 mmol/L (3.5-5.1); Sodium Level 135 mmol/L (136-145)
[2023-06-30] MEDS: Aspirin 81 MG TAB.CHEW PO (08:45)
[2023-06-30] MEDS: guaiFENesin 1,200 MG Tablet 1200 MG PO ×2 (08:46→21:09)
[2023-06-30] MEDS: Lisinopril 10 MG Tablet PO (08:47)
[2023-06-30] MEDS: Ketorolac 15 MG/ML Vial IV ×2 (08:51→21:09)
[2023-06-30] MEDS: Ensure Plus High Protein 120 ML LIQUID PO ×2 (08:51→21:08)
[2023-06-30] MEDS: 0.9% Saline Lock 10 ML Syringe IV ×4 (08:52→21:13)
--- NOTE | 2023-06-30 10:30 | PN.HOSP_ITS ---
Subjective Subjective Continues to have some pain in his back yesterday the Toradol was working but today states that it does not. He also had an episode of numbness and tingling yesterday that has resolved and NIH is remaining 0. CT of the brain was negative for head bleed which was the greatest risk given his heparin drip. No concern for CVA at this time Objective Data Objective Data Vital Signs: Vital Signs Temp Pulse Resp BP Pulse Ox O2 Del Method O2 Flow Rate 97.9 F 90 18 116/79 93 Nasal Cannula 4 06/30/23 05:00 06/30/23 05:00 06/30/23 05:00 06/30/23 05:00 06/30/23 05:00 06/30/23 05:00 06/30/23 05:00 Oxygen Flow Rate (L/min) 4 Oxygen Delivery Method Nasal Cannula Weight: 236 lb 1.6 oz Body Mass Index (BMI) 41.8 Intake & Output: Intake and Output for Last 24 Hours 06/29/23 06/30/23 07/01/23 03:59 03:59 03:59 Intake Total 810.17 / 810.17 725.43 / 725.43 300 / 300 Balance 810.17 / 810.17 725.43 / 725.43 300 / 300 Lab / Micro Data 06/30/23 06:57 06/30/23 06:57 Labs: Laboratory Results - last 24 hr 06/29/23 12:35: APTT 58.9 H 06/29/23 18:40: APTT 56.3 H 06/30/23 00:45: APTT 63.3 H 06/30/23 06:57: WBC 9.1, RBC 4.34 L, Hgb 12.5 L, Hct 37.9 L, MCV 87.3, MCH 28.8, MCHC 33.0, RDW Std Deviation 45.1 H, RDW Coeff of Sailaja 14.5, Plt Count 95 L, MPV 11.2, Immature Gran % (Auto) 1.400 H, Neut % (Auto) 72.5 H, Lymph % (Auto) 13.9 L, [place] % (Auto) 11.4 H, Eos % (Auto) 0.4, Baso % (Auto) 0.4, Absolute Neuts (auto) 6.6, Absolute Lymphs (auto) 1.27, Nucleated RBC % 0, APTT 63.6 H, Sodium 135 L, Potassium 3.7, Chloride 109 H, Carbon Dioxide 21.0, Anion Gap 5, BUN 19 H , Creatinine 0.90, Estim Creat Clear Calc 74.15, Est GFR (MDRD) Af Amer 114, Est GFR (MDRD) Non-Af 94, BUN/Creatinine Ratio 21.2 H, Glucose 103, Calcium 8.1 L Micro: Microbiology 06/28/23 11:10 Nasal Secretion SARS-CoV-2 & FLU Antigen (Rapid) - Final Radiography Diagnostic Testing: Radiology Impression Brain CT 06/29/23 13:38 IMPRESSION: Normal unenhanced CT scan of the brain. Electronically Signed: Elliot Vieyra MD at 14:09 EDT , Rhythm Strip Rhythm Strip: Sinus Tach Rate: 101 Ectopy: None Physical Exam Narrative General: Alert, Oriented x3, Cooperative, No apparent distress HEENT: Atraumatic, PERRLA, EOMI, Normocephalic Oral: Moist Mucosa Neck: Supple, No JVD Lungs: Clear to auscultation, Normal air movement, No rhonchi, No wheeze, No rales Cardiovascular: Regular rate, Regular Rhythm, Normal S1, Normal S2, No murmurs Abdomen: Soft, Non Tender, Non-Distended, No Hepato-splenomegaly Extremities: No edema, Capillary Refill Less than 3 Seconds Skin: No rashes, No breakdown Musculoskeletal: No Tenderness to Palpation of Joints or Extremities Neurological: Cranial nerves II-XII grossly intact, Motor Exam 5/5 strength throughout, Sensory exam intact to light touch and pain Psych/Mental Status: Normal Affect, Appropriate Assessment & Plan Assessment/Plan (1) Non-ST elevation [place] (NSTEMI): PLAN: Plan 1. Non-STEMI ? We will consult cardiology ? We will place him on a heparin drip ? We will start him on aspirin ? Triglycerides of 77 with an LDL of 39 and an HDL of 52 2. Metastatic prostate cancer with history of DVT ? He took his Xarelto this morning which is why he cannot proceed with a heart cath this afternoon ? Can continue to hold his Xarelto until discharge ? He does have an IVC filter and so he would have to have a wrist approach for the cath ? Received his hormone therapy for the metastatic prostate cancer from the cancer [place] [facility] in [place] ? We will continue with the Toradol but can try him on a dose of morphine to see if that helps with back pain DVT: Heparin drip Charges/Coding Visit Charges Inpatient E&M: 83418 Subs Hosp L2
[2023-06-30] MEDS: Morphine 2 MG/ML Syringe IV ×2 (10:46→19:37)
--- NOTE | 2023-06-30 15:22 | PCM.PN.CARD ---
Subjective Subjective Patient seen evaluated at bedside along with the nursing staff Sitting out in a chair Does not have any active chest pain. Objective Data Vital Signs: Vital Signs Temp Pulse Resp BP Pulse Ox O2 Del Method O2 Flow Rate 98 F 89 17 115/79 92 Nasal Cannula 2 06/30/23 13:00 06/30/23 13:00 06/30/23 13:00 06/30/23 13:00 06/30/23 13:00 06/30/23 13:45 06/30/23 13:45 Oxygen Flow Rate (L/min) 2 Oxygen Delivery Method Nasal Cannula Weight: 236 lb 1.6 oz Body Mass Index (BMI) 41.8 Intake & Output: Intake and Output for Last 24 Hours 06/28/23 06/29/23 06/30/23 23:59 23:59 23:59 Intake Total 570.17 / 810.17 919.83 / 919.83 1243.2 / 1243.2 Balance 570.17 / 810.17 919.83 / 919.83 1243.2 / 1243.2 Lab / Micro Data 06/30/23 06:57 06/30/23 06:57 Labs: Laboratory Results - last 24 hr 06/29/23 18:40: APTT 56.3 H 06/30/23 00:45: APTT 63.3 H 06/30/23 06:57: WBC 9.1, RBC 4.34 L, Hgb 12.5 L, Hct 37.9 L, MCV 87.3, MCH 28.8, MCHC 33.0, RDW Std Deviation 45.1 H, RDW Coeff of Sailaja 14.5, Plt Count 95 L, MPV 11.2, Immature Gran % (Auto) 1.400 H, Neut % (Auto) 72.5 H, Lymph % (Auto) 13.9 L, [place] % (Auto) 11.4 H, Eos % (Auto) 0.4, Baso % (Auto) 0.4, Absolute Neuts (auto) 6.6, Absolute Lymphs (auto) 1.27, Nucleated RBC % 0, APTT 63.6 H, Sodium 135 L, Potassium 3.7, Chloride 109 H, Carbon Dioxide 21.0, Anion Gap 5, BUN 19 H, Creatinine 0.90, Estim Creat Clear Calc 74.15, Est GFR (MDRD) Af Amer 114, Est GFR (MDRD) Non-Af 94, BUN/Creatinine Ratio 21.2 H, Glucose 103, Calcium 8.1 L Rhythm Strip Rhythm Strip: Sinus Tach Rate: 101 Ectopy: None Cardiology Labs/Tests 06/29/23 18:40: APTT 56.3 H 06/30/23 00:45: APTT 63.3 H 06/30/23 06:57: WBC 9.1, RBC 4.34 L, Hgb 12.5 L, Hct 37.9 L, MCV 87.3, MCH 28.8, MCHC 33.0, Plt Count 95 L, MPV 11.2, Immature Gran % (Auto) 1.400 H, Neut % (Auto) 72.5 H, Lymph % (Auto) 13.9 L, [place] % (Auto) 11.4 H, Eos % (Auto) 0.4, Baso % (Auto) 0.4, Absolute Neuts (auto) 6.6, Nucleated RBC % 0, APTT 63.6 H, Sodium 135 L, Potassium 3.7, Chloride 109 H, Carbon Dioxide 21.0, Anion Gap 5, BUN 19 H, Creatinine 0.90, Est GFR (MDRD) Af Amer 114, Est GFR (MDRD) Non-Af 94, BUN/Creatinine Ratio 21.2 H, Glucose 103, Calcium 8.1 L Rhythm: EKG: ECHO: Stress Test: Cardiac Cath: PCI: CT Surgery: Holter monitor: EPS: PPM: CXR: Chest CT Scan: Physical Exam Cardio Cardio Narrative: Cardiac rhythm is normal sinus rhythm. Cardiovascular exam S1-S2 is regular Chest exam is clear to auscultation bilateral Examination lower extremity no clubbing no cyanosis no lower extremity edema Pedal pulses palpable. 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 With chest pain Patient had metastatic prostate cancer as well has a DVT and has IVC filter and has been on Eliquis As part of cardiac evaluation he had high sensitive troponin which was elevated with a subsequent echocardiogram showing abnormal echocardiogram with contrast using Definity showed LV function preserved Ejection fraction the range of 55 - 60%. The CT result showed evidence of metastasis to cervical spine Cardiac care plan recommendations; Patient is scheduled for cardiac catheterization 2. Continue medical therapy which will include heparin aspirin statin using atorvastatin And based on cardiac catheterization to decide further plan possible low-dose beta-smita as tolerated Continue monitor on cardiac telemetry. I scheduled the patient for cardiac cath tomorrow by .
[2023-07-01] VITALS (19 sets, daily range): BP systolic 98–123; BP diastolic 72–88; PULSE 63–100; RESP 15–19; TEMP 36.6–37.2; O2SAT 87–93
[2023-07-01] MEDS: HEPARIN/D5w 25,000 UNITS 25,000 UNITS/250 ML IV.SOLN. 8 UNITS CONT INF (03:06)
[2023-07-01 04:43] LABS: Absolute Lymphocyte Count 1.62 X10^3/uL (0.83-4.51); Absolute Neutrophil Count 6.2 X10^3/uL (2.0-7.7); Basophil# 0.05 X10^3/uL; Basophil% 0.5 % (0-1); Eosinophils% 1.1 % (0-5); Hematocrit 38.8 % (40-54); Hemoglobin 12.5 g/dL (13.0-16.5); Lymphocyte # 1.62 X10^3/ul (0.83-4.51); Lymphocyte % 17.4 % (19-41); Mean Corp Hgb Conc 32.2 g/dL (32-36); Mean Corpuscular Hgb 28.5 pg (27.0-32.0); Mean Corpuscular Volume 88.6 fL (80-94); Mean Platelet Vol. 11.3 fl (6.2-12.0); Monocyte# 1.11 X10^3/uL; Monocyte% 11.9 % (0-10); NRBC Flagged by Analyzer 0 % (0-5); Neutrophil # 6.22 X10^3/uL (2.7-7.7); Neutrophil % 66.9 % (47-70); POSITIVE COUNT YES; Platelet Count 99 K/mm3 (150-450); RBC Distribution Width CV 14.6 % (11.6-14.6); RBC Distribution Width SD 46.3 fl (35.1-43.9); Red Blood Count 4.38 M/mm3 (4.6-6.2); White Blood Count 9.3 K/mm3 (4.4-11.0)
[2023-07-01 04:55] LABS: Partial Thromboplast Time 61.8 Seconds (24.1-36.2)
[2023-07-01 05:11] LABS: Anion Gap 2 (5-15); BUN 21 mg/dL (7-18); BUN/Creat Ratio 17.5 RATIO (10-20); Calcium,Total 8.4 mg/dL (8.5-10.1); Chloride 107 mmol/L (98-107); EST Glomerular Filtration Rate 67 mL/min (>60); Est Glom Filt Rate - Afr Amer 82 mL/min (>60); Estimated Creatinine Clearance 55.61 ml/min; Glucose 101 mg/dL (74-106); Potassium 4.2 mmol/L (3.5-5.1); Sodium Level 136 mmol/L (136-145)
--- NOTE | 2023-07-01 05:55 | EKG12_ITS ---
Test Reason : AM EKG Blood Pressure : / mmHG Vent. Rate : 095 BPM Atrial Rate : 095 BPM P-R Int : 144 ms QRS Dur : 090 ms QT Int : 380 ms P-R-T Axes : 054 -30 -18 degrees QTc Int : 477 ms Normal sinus rhythm Left axis deviation T wave abnormality, consider anterior ischemia Prolonged QT Abnormal ECG When compared with ECG of 29-JUN-2023 19:51, MANUAL COMPARISON REQUIRED, DATA IS UNCONFIRMED Confirmed by IRINEO MILLER, MADHAV ([id number]), order editor FREDA GAN ([id number]) on 08/21/2023 10:30:16 AM Referred By: Confirmed By:MADHAV CABELLO MD
[2023-07-01] MEDS: Morphine 2 MG/ML Syringe IV ×2 (06:31→10:53)
[2023-07-01] MEDS: Lisinopril 10 MG Tablet PO (06:31)
[2023-07-01] MEDS: Aspirin 81 MG TAB.CHEW PO (06:31)
[2023-07-01] MEDS: 0.9% Saline Lock 10 ML Syringe IV ×3 (06:32→10:53)
--- NOTE | 2023-07-01 06:52 | PN.HOSP_ITS ---
Reason for Visit Reason for Visit: Diagnoses Malignant neoplasm of prostate (06/28/23) Secondary malignant neoplasm of bone (06/28/23) Non-ST elevation (NSTEMI) myocardial infarction (06/28/23) Other forms of dyspnea (06/28/23) Subjective Subjective Patient with no acute events overnight per self and per nursing report however he reports a chronic ongoing persistent cough that is nonproductive but he does state it is very bothersome. He is currently still on 4 L nasal cannula. 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 Given cost patient preferred holding off on a respiratory viral panel and a COVID PCR at this time. He denies any current chest discomfort but still has dyspnea worse with exertion. Patient denies fevers, chills, nausea, emesis, abdominal pain, chest pain. Objective Data Objective Data Vital Signs: Vital Signs Temp Pulse Resp BP Pulse Ox O2 Del Method O2 Flow Rate 99.0 F 94 18 123/88 H 91 Nasal Cannula 4 07/01/23 06:24 07/01/23 06:24 07/01/23 06:24 07/01/23 06:24 07/01/23 06:24 07/01/23 06:24 07/01/23 06:24 Oxygen Flow Rate (L/min) 4 Oxygen Delivery Method Nasal Cannula Weight: 236 lb 1.6 oz Body Mass Index (BMI) 41.8 Intake & Output: Intake and Output for Last 24 Hours 06/29/23 06/30/23 07/01/23 23:59 23:59 23:59 Intake Total 919.83 / 919.83 1843.2 / 2155.2 431.8 / 431.8 Balance 919.83 / 919.83 1843.2 / 2155.2 431.8 / 431.8 Lab / Micro Data 07/01/23 04:25 07/01/23 04:25 Labs: Laboratory Results - last 24 hr 06/30/23 06:57: WBC 9.1, RBC 4.34 L, Hgb 12.5 L, Hct 37.9 L, MCV 87.3, MCH 28.8, MCHC 33.0, RDW Std Deviation 45.1 H, RDW Coeff of Sailaja 14.5, Plt Count 95 L, MPV 11.2, Immature Gran % (Auto) 1.400 H, Neut % (Auto) 72.5 H, Lymph % (Auto) 13.9 L, [place] % (Auto) 11.4 H, Eos % (Auto) 0.4, Baso % (Auto) 0.4, Absolute Neuts (auto) 6.6, Absolute Lymphs (auto) 1.27, Nucleated RBC % 0, APTT 63.6 H, Sodium 135 L, Potassium 3.7, Chloride 109 H, Carbon Dioxide 21.0, Anion Gap 5, BUN 19 H , Creatinine 0.90, Estim Creat Clear Calc 74.15, Est GFR (MDRD) Af Amer 114, Est GFR (MDRD) Non-Af 94, BUN/Creatinine Ratio 21.2 H, Glucose 103, Calcium 8.1 L 07/01/23 04:25: WBC 9.3, RBC 4.38 L, Hgb 12.5 L, Hct 38.8 L, MCV 88.6, MCH 28.5, MCHC 32.2, RDW Std Deviation 46.3 H, RDW Coeff of Sailaja 14.6, Plt Count 99 L, MPV 11.3, Immature Gran % (Auto) 2.200 H, Neut % (Auto) 66.9, Lymph % (Auto) 17.4 L, [place] % (Auto) 11.9 H, Eos % (Auto) 1.1, Baso % (Auto) 0.5, Absolute Neuts (auto) 6.2, Absolute Lymphs (auto) 1.62, Nucleated RBC % 0, APTT 61.8 H, Sodium 136, Potassium 4.2, Chloride 107, Carbon Dioxide 27.0, Anion Gap 2 L, BUN 21 H, Creatinine 1.20, Estim Creat Clear Calc 55.61, Est GFR (MDRD) Af Amer 82, Est GFR (MDRD) Non-Af 67, BUN/Creatinine Ratio 17.5, Glucose 101, Calcium 8.4 L Micro: Microbiology 06/28/23 11:10 Nasal Secretion SARS-CoV-2 & FLU Antigen (Rapid) - Final Rhythm Strip Rhythm Strip: Sinus Tach Rate: 101 Ectopy: None Physical Exam Narrative Physical Examination: General: Awake, alert, oriented x 3 and cooperative, seated upright in PCU bedside chair, fatigued otherwise no acute distress, occasional dry cough during evaluation. Skin: Normal color, normal turgor, no icterus, no cyanosis except occasional staged ecchymoses likely from lab draws to the extremities. HEENT: AT/NC, EOMI, PERRLA, MMM. Lungs: Diminished, greater bases, appropriate effort, decent air movement, no respiratory distress nor marked tachypnea, no rales, ronchi or wheezing. Heart: Regular rate and rhythm; no gallop, rub audible. Abdomen: Soft, morbidly obese, NTTP, ND, mildly hyperactive BS. Extremities: No cyanosis, clubbing, or edema. Neurological: Patient awake, alert, oriented as noted, cognitive function intact; pupils equally reactive to light and accommodation, cranial nerves II- XII grossly normal, moving all 4 extremities, no focal deficits, strength moderately global decrease secondary to acute presentation and underlying metastatic cancer with chronic pain. Fatigued otherwise Psychiatric: Affect appears normal, no acute evidence of depressive or anxiety feelings. Assessment & Plan Assessment/Plan (1) Non-ST elevation [place] (NSTEMI): PLAN: Plan The patient is a 52 y/o M w/ PMHx: Morbid obesity, Metastatic Prostate Cancer, Hx DVT/PE, HTN who presents to the [facility] ED on 06/28/23 with history of cough and dyspnea with no specific chest discomfort but increased fatigue and malaise as well as lightheadedness worse with activity prompting eventual ED evaluation. #1. Acute NSTEMI: EKG in ED w/ sinus tachycardia with nonspecific T wave inversions with no acute evidence of ischemia, chest x-ray unremarkable, CTPA with no evidence of PE with findings suggestive of metastatic deposits involving the cervical and visualized thoracic vertebrae, Trop elevated, 293->251->288. Maintained in the PCU, maintained on a monitored bed, maintained on a heparin drip, 06/28/2023 echocardiogram with EF 55 to 60%, overall normal LV systolic function, mild TR, contrast echo performed, maintained on aspirin, continue medical management w/ asa, added moderate dose BB per Cardiology recommendation but defer to their preference, added atorvastatin 40 mg daily per Cardiology recommendation but defer to their preference, FLP w/ TG 77, TChol 106, LDL 39, VLDL 15, HDL 52. Mag requested. Cardiology consulted and following with planned upcoming cardiac catheterization. #2. 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 Albuterol and continue monitor. Will have as needed cough regimen. #3. Metastatic prostate cancer: Noted to be to the bone as well as from CT imaging to the spine, suspect patient to transient paresthesias likely related, CT of the head with no acute findings, reported surgical intervention approximately 1 year prior, per discussion with patient he already has follow-up oncological plan and deferred any further concept of MRI imaging of his spine given CTA findings as he is aware of these metastatic foci with planned initiation of treatment following his discharge. We will continue patient home abiraterone and prednisone therapy. Also secondary to chronic pain associated offered palliative consultation which patient declined at this time. #4. Chronic back pain w/ Metastatic Prostate CA w/ transient acute paresthesias LE: Improved, suspect unfortunately related with his metastatic cancer, CT head unremarkable, NIHSS 0 as resolved, continue evaluation #1 as noted. Per discussion with patient he already has follow-up oncological plan and deferred any further concept of MRI imaging of his spine given CTA findings as he is aware of these metastatic foci with planned initiation of treatment following his discharge. Also secondary to chronic pain associated offered palliative consultation which patient declined at this time. #4. Chronic normocytic anemia: Likely related with his underlying CA, admission Hgb 14.7, most recent repeat Hgb 07/01/23 12.5, same the day prior, judiciously hydrated for catheterization preparation thus admission presentation likely falsely elevated, continue to trend. #5. History of VTE/DVT: s/p prior IVCF of note. Patient Xarelto held given presentation, currently transition to maintained on heparin drip, add back and transition to oral regimen once appropriate. #6. Hypertension: Continue home regimen including lisinopril, low-dose Coreg added per cardiology recommendation, PRN hydralazine. #7. Morbid Obesity: Weight loss and lifestyle changes encouraged. #8. DVT prophylaxis: Continue heparin drip as noted. #9. CODE status: DNR-CCA, no intubation. Charges/Coding Visit Charges Inpatient E&M: 05850 Subs Hosp L2
[2023-07-01 09:57] LABS: Magnesium 2.4 mg/dL (1.6-2.6)
[2023-07-01] MEDS: guaiFENesin 1,200 MG Tablet 1200 MG PO ×2 (09:59→21:29)
[2023-07-01] MEDS: Ketorolac 15 MG/ML Vial IV ×2 (10:00→21:28)
[2023-07-01] MEDS: Magnesium Chloride 64 MG Delay Rel.Tablet 128 MG PO (10:03)
[2023-07-01] MEDS: Ascorbic Acid 500 MG Tablet PO (10:03)
[2023-07-01] MEDS: Carvedilol 6.25 MG Tablet PO ×2 (10:03→21:31)
[2023-07-01] MEDS: Ensure Plus High Protein 120 ML LIQUID PO ×2 (10:05→21:36)
[2023-07-01] MEDS: predniSONE 5 MG Tablet PO ×2 (11:00→18:20)
[2023-07-01] MEDS: Benzonatate 100 MG Capsule PO (12:08)
[2023-07-01] MEDS: Budesonide Respules 0.5 MG/2 ML AMPUL.NEB. INHALATION ×2 (12:25→19:30)
[2023-07-01] MEDS: Albuterol 2.5 MG/3 ML VIAL.NEB. INHALATION (12:25)
[2023-07-01] MEDS: 0.9% Normal Saline 1,000 ML 100 ML IV (18:19)
[2023-07-01] MEDS: Cholecalciferol (VIT D3) 25 MCG TABLET (1,000 UNITS) 50 MCG PO (18:19)
--- NOTE | 2023-07-01 19:30 | CPS ---
Increased O2 to 6 lpm
[2023-07-01] MEDS: Atorvastatin Calcium 40 MG Tablet PO (21:29)
[2023-07-01] MEDS: Rivaroxaban 10 MG Tablet PO (21:30)
[2023-07-02] VITALS (10 sets, daily range): BP systolic 92–113; BP diastolic 62–76; PULSE 77–90; RESP 16–20; TEMP 36.6–36.9; O2SAT 90–98
--- NOTE | 2023-07-02 01:09 | RAD_ITS ---
STUDY: X-RAY CHEST REASON FOR EXAM: Male, 52 years old patient with hypoxia. TECHNIQUE: Single AP portable view of the chest. COMPARISON: June 28 2023 time stamped 11:26 AM. FINDINGS: Cardiac monitoring leads are present. The lungs are clear and expanded. There is no demonstrated pleural abnormality. There is borderline cardiomegaly. Normal mediastinum and jeovanny. Normal visualized pulmonary arteries. Normal visualized aortic arch and descending thoracic aorta. Normal visualized thoracic spine. Normal visualized ribs, clavicles, and shoulders. There is no demonstrated abnormality of the visualized soft tissue structures of the upper abdomen. RAD/Chest 1 View (Portable) IMPRESSION: No radiographic evidence of acute cardiopulmonary disease. Electronically Signed: Aurora Danielson MD at 3:09 EDT ,
--- NOTE | 2023-07-02 01:18 | PCM.HOSP.N ---
Hospitalist Note Due to worsening hypoxia and increasing oxygen requirements. Patient got up and required more oxygen with exertion but never recovered and remains on 7 L heated high flow. We will check chest x-ray and BNP. Previous note from earlier today reviewed.
[2023-07-02 01:40] LABS: BNP,B-Type NATRIURETIC PEPTIDE 247.6 pg/mL (0-100)
[2023-07-02] MEDS: Furosemide 40 MG/4 ML Vial IV ×2 (02:54→16:09)
[2023-07-02 05:37] LABS: Partial Thromboplast Time 54.5 Seconds (24.1-36.2)
[2023-07-02 05:43] LABS: Anion Gap 5 (5-15); BUN 24 mg/dL (7-18); Calcium,Total 8.9 mg/dL (8.5-10.1); Chloride 108 mmol/L (98-107); EST Glomerular Filtration Rate 67 mL/min (>60); Est Glom Filt Rate - Afr Amer 82 mL/min (>60); Estimated Creatinine Clearance 55.61 ml/min; Glucose 115 mg/dL (74-106); Magnesium 2.5 mg/dL (1.6-2.6); Potassium 4.5 mmol/L (3.5-5.1); Sodium Level 137 mmol/L (136-145)
[2023-07-02 06:20] LABS: Absolute Lymphocyte Count 1.53 X10^3/uL (0.83-4.51); Absolute Neutrophil Count 7.5 X10^3/uL (2.0-7.7); Basophil# 0.06 X10^3/uL; Basophil% 0.6 % (0-1); Eosinophil# 0.09 X10^3/uL; Eosinophils% 0.9 % (0-5); Hematocrit 42.6 % (40-54); Hemoglobin 13.7 g/dL (13.0-16.5); Lymphocyte # 1.53 X10^3/ul (0.83-4.51); Lymphocyte % 15.1 % (19-41); Mean Corp Hgb Conc 32.2 g/dL (32-36); Mean Corpuscular Hgb 28.3 pg (27.0-32.0); Mean Platelet Vol. 11.7 fl (6.2-12.0); Monocyte# 0.79 X10^3/uL; Monocyte% 7.8 % (0-10); NRBC Flagged by Analyzer 0 % (0-5); Neutrophil # 7.47 X10^3/uL (2.7-7.7); Platelet Count 162 K/mm3 (150-450); RBC Distribution Width CV 14.8 % (11.6-14.6); RBC Distribution Width SD 47.5 fl (35.1-43.9); Red Blood Count 4.84 M/mm3 (4.6-6.2); White Blood Count 10.1 K/mm3 (4.4-11.0)
--- NOTE | 2023-07-02 06:21 | PN.HOSP_ITS ---
Reason for Visit Reason for Visit: Diagnoses Malignant neoplasm of prostate (06/28/23) Secondary malignant neoplasm of bone (06/28/23) Non-ST elevation (NSTEMI) myocardial infarction (06/28/23) Other forms of dyspnea (06/28/23) Subjective Subjective Patient overnight with increased oxygen requirement up to 8 L with ongoing mild cough and some exertional dyspnea with no chest discomfort. Overnight BNP was obtained and mildly elevated therefore patient was dosed with Lasix 40 mg IV x1 but reported no marked change in his symptoms. Patient evaluation this a.m. also by pulmonary medicine with recommendation for limited echo with bubble study with prelim concerning for possible cardiac level shunt but awaiting final read and repeat BMP further mildly elevated. Discussed these results and concerns with patient and also contacted cardiology and awaiting their formal read and evaluation. Patient denies fevers, chills, nausea, emesis, abdominal pain, chest pain. Objective Data Objective Data Vital Signs: Vital Signs Temp Pulse Resp BP Pulse Ox O2 Del Method O2 Flow Rate 97.9 F 78 18 92/68 94 High Flow 8 07/02/23 03:10 07/02/23 03:10 07/02/23 03:10 07/02/23 03:10 07/02/23 03:10 07/02/23 03:10 07/02/23 03:10 Oxygen Flow Rate (L/min) 8 Oxygen Delivery Method High Flow Weight: 236 lb 1.6 oz Body Mass Index (BMI) 41.8 Intake & Output: Intake and Output for Last 24 Hours 06/30/23 07/01/23 07/02/23 23:59 23:59 23:59 Intake Total 1843.2 / 2155.2 1075.66 / 1075.66 878.33 / 878.33 Balance 1843.2 / 2155.2 1075.66 / 1075.66 878.33 / 878.33 Lab / Micro Data 07/02/23 05:13 07/02/23 05:13 Labs: Laboratory Results - last 24 hr 07/01/23 04:25: Magnesium 2.4, B-Natriuretic Peptide 247.6 H 07/02/23 05:13: WBC 10.1, RBC 4.84, Hgb 13.7, Hct 42.6, MCV 88.0, MCH 28.3, MCHC 32.2, RDW Std Deviation 47.5 H, RDW Coeff of Sailaja 14.8 H, Plt Count 162, MPV 11.7, Immature Gran % (Auto) 1.600 H, Neut % (Auto) 74.0 H, Lymph % (Auto) 15.1 L, [place] % (Auto) 7.8, Eos % (Auto) 0.9, Baso % (Auto) 0.6, Absolute Neuts (auto) 7.5, Absolute Lymphs (auto) 1.53, Nucleated RBC % 0, APTT 54.5 H, Sodium 137, Potassium 4.5, Chloride 108 H, Carbon Dioxide 24.0, Anion Gap 5, BUN 24 H, Creatinine 1.20, Estim Creat Clear Calc 55.61, Est GFR (MDRD) Af Amer 82, Est GFR (MDRD) Non-Af 67, BUN/Creatinine Ratio 20.0, Glucose 115 H, Calcium 8.9, Magnesium 2.5 Micro: Microbiology 07/01/23 16:52 Mucosa - Nose Coronavirus COVID-19 PCR - Final 07/01/23 16:52 Mucosa - Nose Respiratory Panel (PCR) - Final 06/28/23 11:10 Nasal Secretion SARS-CoV-2 & FLU Antigen (Rapid) - Final Radiography Diagnostic Testing: Radiology Impression Chest X-Ray 07/02/23 01:09 IMPRESSION: No radiographic evidence of acute cardiopulmonary disease. Electronically Signed: Aurora Danielson MD at 3:09 EDT Reading Location ID and State: [address] [place] [address] , Service support , Rhythm Strip Rhythm Strip: Sinus Tach Rate: 101 Ectopy: None Physical Exam Narrative Physical Examination: General: Awake, alert, oriented x 3 and cooperative, laying in the PCU bed, fatigued otherwise no acute distress, less coughing the day prior. Skin: Normal color, normal turgor, no icterus, no cyanosis except occasional staged ecchymoses likely from lab draws to the extremities. HEENT: AT/NC, EOMI, PERRLA, MMM. Lungs: Air movement improved from day prior, movements were all wang, very minimally diminished at bases, appropriate effort, occasional cough but less than day prior, no rales, rhonchi or wheezing. Heart: Regular rate and rhythm; no gallop, rub audible. Abdomen: Soft, morbidly obese, NTTP, ND, normal BS. Extremities: No cyanosis, clubbing, or edema. Neurological: Patient awake, alert, oriented as noted, cognitive function intact; pupils equally reactive to light and accommodation, cranial nerves II- XII grossly normal, moving all 4 extremities, no focal deficits, strength moderately global decrease secondary to acute presentation and underlying metastatic cancer with chronic pain as well as increased oxygen requirements. Psychiatric: Affect appears fatigued, no acute evidence of depressive or anxiety feelings. Assessment & Plan Assessment/Plan (1) Non-ST elevation PA (NSTEMI): PLAN: Plan The patient is a 52 y/o M w/ PMHx: Morbid obesity, Metastatic Prostate Cancer, Hx DVT/PE, HTN who presents to the [facility] ED on 06/28/23 with history of cough and dyspnea with no specific chest discomfort but increased fatigue and malaise as well as lightheadedness worse with activity prompting eventual ED evaluation. #1. Acute NSTEMI suspected more likely type II with demand with #2 as noted: EKG in ED w/ sinus tachycardia with nonspecific T wave inversions with no acute evidence of ischemia, chest x-ray unremarkable, CTPA with no evidence of PE with findings suggestive of metastatic deposits involving the cervical and visualized thoracic vertebrae, Trop elevated, 293->251->288. Maintained in the PCU, maintained on a monitored bed, initiated on a heparin drip until postcardiac catheterization and then transition 07/01/2023 2 appropriate dosing of Xarelto, 06/28/2023 echocardiogram with EF 55 to 60%, overall normal LV systolic function, mild TR, contrast echo performed, maintained on aspirin, continue medical management w/ asa, added moderate dose BB per Cardiology recommendation but defer to their preference, added atorvastatin 40 mg daily per Cardiology recommendation but defer to their preference, FLP w/ TG 77, TChol 106, LDL 39, VLDL 15, HDL 52. Mag requested. Cardiology consulted and s/p 07/01/23 cardiac catheterization with no marked cardiac disease. Given increased oxygen requirement Pulmonary ordered limited ECHO with bubble which is pending however prelim appears as if there is a cardiac level shunt but awaiting cardiac read as well as their input. They have been contacted and discussed his case and concerns. #2. Acute Hypoxia, Worsening with Persistent Cough, Unclear etiology, history of childhood asthma, possible soybean dust exposure versus further cardiac etiology: Patient does admit to asthma in his childhood and working with significant chemicals recently with symptoms primarily starting over the last 3 to 4 weeks with persistent cough, CTPA with no obvious acute findings, rapid SARS COVID and influenza antigen negative, negaive full viral panel and COVID PCR, 07/01/23 ATC budesonide therapy started, 07/01-07/02 overnight increased to 8L NC requirements, BNP obtained and very mildly elevated w/ lasix IV x 1 dose administered. Pulmonary medicine consulted and evaluating with current limited ECHO w/ bubble study as noted above with final read pending and ABG, repeat CXR overnight with no acute findings. Suspect his elevated trop with #1 more likely secondary to demand with as noted possibly a cardiac shunt but awaiting final read of the limited echo bubble study. #3. Metastatic prostate cancer: Noted to be to the bone as well as from CT imaging to the spine, suspect patient to transient paresthesias likely related, CT of the head with no acute findings, reported surgical intervention approximately 1 year prior, per discussion with patient he already has follow-up oncological plan and deferred any further concept of MRI imaging of his spine given CTA findings as he is aware of these metastatic foci with planned initiation of treatment following his discharge. We will continue patient home abiraterone and prednisone therapy. Also secondary to chronic pain associated offered palliative consultation which patient declined at this time. #4. Chronic back pain w/ Metastatic Prostate CA w/ transient acute paresthesias LE: Improved, suspect unfortunately related with his metastatic cancer, CT head unremarkable, NIHSS 0 as resolved, continue evaluation #1 as noted. Per discussion with patient he already has follow-up oncological plan and deferred any further concept of MRI imaging of his spine given CTA findings as he is aware of these metastatic foci with planned initiation of treatment following his discharge. Also secondary to chronic pain associated offered palliative consultation which patient declined at this time. #4. Chronic normocytic anemia: Likely related with his underlying CA, admission Hgb 14.7, most recent repeat Hgb 07/01/23 12.5, same the day prior, judiciously hydrated for catheterization preparation thus admission presentation likely falsely elevated, continue to trend. #5. History of VTE/DVT: s/p prior IVCF of note. Patient upon presentation Xarelto held with heparin drip however added back oral Xarelto 10/31/2023 at current dose which was discussed with pharmacy and they noted it could be transition to 20 mg daily as his cancer center had had him on 10 mg daily without restarting the loading section. #6. Hypertension: Continue home regimen including lisinopril, low-dose Coreg added per cardiology recommendation, PRN hydralazine. #7. Morbid Obesity: Weight loss and lifestyle changes encouraged. #8. DVT prophylaxis: Heparin drip transition to Xarelto 07/01/2023. #9. CODE status: DNR-CCA, no intubation. Charges/Coding Visit Charges Inpatient E&M: 33893 Subs Hosp L3
--- NOTE | 2023-07-02 07:35 | CON.PCM.CC_ITS ---
Assessment & Plan Assessment/Plan (1) Dyspnea on exertion: PLAN: Plan RECOMMENDATIONS: 1. Supplemental oxygen for saturations greater than 90%. 2. Obtain limited echocardiogram with bubble study to evaluate for cardiac level shunt. 3. Obtain repeat BNP. 4. Attempt diuresis, as tolerated by hemodynamics and renal function. 5. Encourage incentive spirometer use and mobilize patient as tolerated. IMPRESSIONS: 1. Shortness of breath and hypoxemia The patient initially presented to the hospital with cough and dyspnea in the s etting of an NSTEMI. He was taken for cardiac catheterization, which apparently showed no culprit lesions. CTA was negative for PE. There was no significant pulmonary parenchymal abnormalities. Despite this, the patient remains hypoxemic. Repeat BNP this morning was elevated at 336. At this time, recommend follow-up limited echocardiogram with agitated bubble study to evaluate for cardiac level shunt. Continue supplemental oxygen to maintain saturations at or above 90%. 2. NSTEMI Management per cardiology recommendations. 3. History of metastatic prostate cancer/history of VTE /hypertension/obesity Complicates care, management, recovery and prognosis. Continue home medications as indicated. This note was generated with [employer] dictation software. It may contain incorrect words, spelling, and punctuation that were not noted in checking the note before signing. HPI Consult Data Date of Consult: 07/02/23 HPI Narrative Reason for Consultation: Hypoxemia HPI Narrative: The patient is a 52-year-old male, with a history as outlined below, who initially presented to the emergency department on June 28 with reported shortness of breath and cough. The patient reported that the symptoms have been present now for the last 2 to 3 weeks. He does report a childhood history of asthma, but reported that he outgrew his symptoms [facility] He is a non-smoker, without any pre-existing pulmonary conditions. 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 On presentation to the emergency department, the patient was noted to be afebrile and hemodynamically stable. He was initially saturating 96% on room air. Initial laboratory evaluation revealed no evidence of a leukocytosis. Chemistry profile was notable for a creatinine of 1.35. Troponin was elevated at 293. CTA chest showed no evidence for pulmonary embolism. There was no significant pulmonary parenchymal abnormalities. The patient was evaluated by cardiology and was taken for cardiac catheterization, without any significant lesions reported. It does appear that the patient's supplemental oxygen requirement has increased over the last 24 hours. ABG obtained this morning on 7 L/min demonstrated a pH of 7.45 with a PCO2 of 28 and PO2 of 68. BNP is elevated at 336. [facility] Medical History (Updated 06/30/23 @ 15:[address] Sawyer Gonzales MD) DVT (deep venous thrombosis) Hip replacement planned Presence of IVC filter Prostate cancer Home Medications abiraterone 500 mg tablet 1,000 mg PO DAILY CANCER 06/28/23 [History Last Taken 06/27/23 22:00] ascorbate calcium (vitamin C) 500 mg tablet 500 mg PO DAILY VIT C 06/28/23 [History Last Taken 06/27/23 18:00] calcium carbonate 600 mg calcium (1,500 mg) tablet (Calcium) 1,200 mg PO DAILY calcium deficiency 06/28/23 [History Last Taken 06/28/23] cholecalciferol (vitamin D3) 50 mcg (2,000 unit) capsule 50 mcg PO DAILY VIT d 06/28/23 [History Last Taken 06/28/23] lisinopril 10 mg tablet 10 mg PO DAILY BLOOD PRESSURE 06/28/23 [History Last Baldemar en 06/27/23 18:00] magnesium oxide 500 mg tablet 500 mg PO DAILY MAGNESIUM 06/28/23 [History Last Taken 06/27/23 18:00] potassium gluconate 595 mg (99 mg) tablet 595 mg PO DAILY POTASSIUM 06/28/23 [Hi story Last Taken 06/27/23 18:00] prednisone 5 mg tablet 5 mg PO Q12H inflammation 06/28/23 [History Last Taken 06/28/23] rivaroxaban 10 mg tablet (Xarelto) 10 mg PO DAILY BLOOD THINNER 06/28/23 [Histo ry Last Taken 06/28/23] Allergy/AdvReac Type Severity Reaction Status Date / Time No Known Allergies Allergy Verified 06/28/23 10:54 Family History Father Lung cancer Surgical History (Updated 06/28/23 @ 13:10 by Kailyn Rivera) History of hip replacement, total Social History Smoking Status: Never smoker ROS ROS Narrative 10 systems were reviewed with pertinent positives as noted in the HPI above. Physical Exam Const alert and no apparent distress General Appearance: cooperative HEENT normocephalic and head/scalp atraumatic Eyes PERRL, EOMs intact bilaterally and conjunctivae normal Neck supple General: trachea midline Chest inspection of chest normal Resp normal respiratory effort Auscultation: Negative for rales, rhonchi or wheezes Cardio regular rate and regular rhythm GI normal to inspection, nondistended, normoactive bowel sounds Extremity no clubbing, cyanosis or edema Skin no rashes or lesions noted Neuro oriented x3, CN's II-XII intact bilaterally and moves all extremities Psych cooperative and affect normal Lab / Micro Data 07/02/23 05:13 07/02/23 05:13 Labs: Laboratory Results - last 24 hr 07/01/23 04:25: Magnesium 2.4, B-Natriuretic Peptide 247.6 H 07/02/23 05:13: WBC 10.1, RBC 4.84, Hgb 13.7, Hct 42.6, MCV 88.0, MCH 28.3, MCHC 32.2, RDW Std Deviation 47.5 H, RDW Coeff of Sailaja 14.8 H, Plt Count 162, MPV 11.7, Immature Gran % (Auto) 1.600 H, Neut % (Auto) 74.0 H, Lymph % (Auto) 15.1 L, [place] % (Auto) 7.8, Eos % (Auto) 0.9, Baso % (Auto) 0.6, Absolute Neuts (auto) 7.5, Absolute Lymphs (auto) 1.53, Nucleated RBC % 0, APTT 54.5 H, Sodium 137, Potassium 4.5, Chloride 108 H, Carbon Dioxide 24.0, Anion Gap 5, BUN 24 H, Creatinine 1.20, Estim Creat Clear Calc 55.61, Est GFR (MDRD) Af Amer 82, Est GFR (MDRD) Non-Af 67, BUN/Creatinine Ratio 20.0, Glucose 115 H, Calcium 8.9, Magnesium 2.5 Micro: Microbiology 07/01/23 16:52 Mucosa - Nose Coronavirus COVID-19 PCR - Final 07/01/23 16:52 Mucosa - Nose Respiratory Panel (PCR) - Final Rhythm Strip Rhythm Strip: Sinus Tach Rate: 101 Ectopy: None Radiology Impression Chest X-Ray 07/02/23 01:09 IMPRESSION: No radiographic evidence of acute cardiopulmonary disease. Electronically Signed: Aurora Danielson MD at 3:09 EDT , Charges/Coding Visit Charges Inpatient E&M: 85923 Init Hosp L3
--- NOTE | 2023-07-02 07:44 | ECHOL_ITS ---
Reason For Study: other Procedure This was a limited 2D transthoracic echocardiogram. Exam performed portable in patient room. Left Ventricle Normal LV size. Mild concentric left ventricular hypertrophy. D shaped septum in systole and diastole. The estimated ejection fraction is 60 %. Left ventricular systolic function is normal. Right Ventricle Severely dilated right ventricle. Severe global right ventricular systolic dysfunction. The RV free wall longitudinal strain was -10.6 % . Atria Normal left atrium. The right atrium is moderately enlarged. Bubble contrast study is positive for PFO. Mitral Valve Mild mitral annular calcification. The mitral valve is structurally normal. No prolapse or stenosis seen. Tricuspid Valve Mild (1+) tricuspid valve insufficiency. Right ventricular systolic pressure estimated to be 42 mmHg. Aortic Valve Trisinus/trileaflet aortic valve. Mild focal aortic valve calcification. Pulmonic Valve Normal pulmonic valve. Great Vessels Normal aortic root. Pericardium/Pleural No pericardial effusion. Medication Performed a rapid injection of agitated mix of 9 cc saline and 1cc air to assess for atrial septal defect. MMode/2D Measurements & Calculations LVIDd: 4.6 cm IVSd: 1.2 cm LAV(MOD-sp4): 22.7 ml LVIDs: 3.3 cm LVPWd: 1.3 cm FS: 29.0 % LVAd ap4: 29.4 cm2 SV(MOD-sp4): 54.0 ml SV(sp4-el): 53.8 ml LVLd ap4: 8.0 cm EDV(MOD-sp4): 92.6 ml EDV(sp4-el): 91.3 ml LVAs ap4: 17.5 cm2 LVLs ap4: 6.9 cm ESV(MOD-sp4): 38.5 ml ESV(sp4-el): 37.5 ml EF(MOD-sp4): 58.4 % EF(sp4-el): 58.9 % LA A4 area: 12.3 cm2 LA dimension(2D): 3.5 cm RA A4 area: 20.1 cm2 TAPSE: 1.8 cm Doppler Measurements & Calculations TR max lisseth: 314.0 cm/sec TR max P.4 mmHg ECHO/Echo, Limited Study Interpretation Summary The estimated ejection fraction is 60 %. Severely dilated right ventricle. Severe global right ventricular systolic dysfunction. Right ventricular systolic pressure estimated to be 42 mmHg. The right atrium is moderately enlarged. Bubble contrast study is positive for PFO. Ordering Physician: Enrique Batista Referring Physician: SCOOTER PCP Performed By: Jazmyn Pedraza RCS
[2023-07-02 10:05] LABS: Allen Test Positive; Base Excess -4 mmol/L (-2 to +2); Bicarbonate 19.8 mmol/L (22-26); Blood Gas Specimen Type ART; O2 Delivery Device Cannula; PO2 68 mmHG (75-100); SITE L Radial; SO2 95 % (95-99); Total Carbon Dioxide 21 mmol/L; pCO2 28.6 mmHg (35-45); pH 7.45 (7.35-7.45)
[2023-07-02] MEDS: predniSONE 5 MG Tablet PO ×2 (10:40→18:59)
[2023-07-02] MEDS: Magnesium Chloride 64 MG Delay Rel.Tablet 128 MG PO (10:40)
[2023-07-02] MEDS: Aspirin 81 MG TAB.CHEW PO (10:40)
[2023-07-02] MEDS: Carvedilol 6.25 MG Tablet PO ×2 (10:40→21:33)
[2023-07-02] MEDS: guaiFENesin 1,200 MG Tablet 1200 MG PO ×2 (10:41→21:33)
[2023-07-02] MEDS: Ketorolac 15 MG/ML Vial IV ×2 (10:41→21:34)
[2023-07-02] MEDS: Cholecalciferol (VIT D3) 25 MCG TABLET (1,000 UNITS) 50 MCG PO (10:42)
[2023-07-02] MEDS: Lisinopril 10 MG Tablet PO (10:42)
[2023-07-02] MEDS: Ascorbic Acid 500 MG Tablet PO (10:42)
[2023-07-02] MEDS: Benzonatate 100 MG Capsule PO (10:43)
[2023-07-02] MEDS: BENZOCAINE/MENTHOL 1 LOZENGE MUCOUS MEM (10:43)
[2023-07-02] MEDS: Morphine 2 MG/ML Syringe IV ×2 (10:43→21:33)
[2023-07-02] MEDS: Ensure Plus High Protein 120 ML LIQUID PO ×2 (10:59→21:34)
--- NOTE | 2023-07-02 11:04 | NURSING ---
Patient asked nurse to give hospitalist the number of his md he sees in [place] Dr. Moreland [phone]. Contacted Dr. Rankin and she will call Dr. Moreland
--- NOTE | 2023-07-02 11:59 | CHAPLAIN ---
Type of Pastoral Visit _x__ Initial Visit ___ Follow-up Visit ___ On-call Visit ___ General Patient Visit ___ Spiritual Assessment ___ Family Conference ___ Bereavement ___ Rapid Response ___ Code Blue ___ Other (describe below) Pastoral Care Referral From ___ Patient ___ Family _x__ Nurse ___ Physician ___ Director Of Market Intelligence ___ Retail Sales Vitamin Consultant ___ Other (describe below) Sacrament/Intervention _x__ Active listening ___ Anointing ___ Gnosticist ___ Bereavement ___ Communion _x__ Bree exploration ___ _x__ Life review ___ Prayer ___ Reconciliation ___ Sacrament of Sick _x__ Supportive presence ___ Wedding ___ Other (describe below) Pastoral Comments RN recommended this visit as patient is visiting from [facility] and illness was unexpected; family remains in [facility] and pt is alone; offer of time to listen, be present in pt situation, and exploring coping helps; pt answers questions; pt constantly refers to I will just face it as it comes when asked about how he handles situations, challenges, and such; pt admits that he would not be able to afford the best hospitals in [facility] and would be in a government run facility there; pt is given assurances of good care, good medical providers, and compassion while he is here; pt is asked about his bree resources as well; pt responds that he occasionally prays but does not use this much for his own needs; pt offered ongoing support as he would desire and pt gives words of thanks
--- NOTE | 2023-07-02 14:28 | PCM.PN.CARD ---
Subjective Subjective Denies any chest pain. Objective Data Vital Signs: Vital Signs Temp Pulse Resp BP Pulse Ox O2 Del Method O2 Flow Rate 98.3 F 84 20 H 106/70 96 Nasal Cannula 7 07/02/23 09:23 07/02/23 09:23 07/02/23 09:23 07/02/23 09:23 07/02/23 09:23 07/02/23 09:44 07/02/23 09:44 Oxygen Flow Rate (L/min) 7 Oxygen Delivery Method Nasal Cannula Weight: 236 lb 1.6 oz Body Mass Index (BMI) 41.8 Intake & Output: Intake and Output for Last 24 Hours 06/30/23 07/01/23 07/02/23 23:59 23:59 23:59 Intake Total 1843.2 / 2155.2 1075.66 / 1075.66 1553.33 / 1553.33 Balance 1843.2 / 2155.2 1075.66 / 1075.66 1553.33 / 1553.33 Lab / Micro Data 07/02/23 05:13 07/02/23 05:13 Labs: Laboratory Results - last 24 hr 07/01/23 04:25: B-Natriuretic Peptide 247.6 H 07/02/23 05:13: WBC 10.1, RBC 4.84, Hgb 13.7, Hct 42.6, MCV 88.0, MCH 28.3, MCHC 32.2, RDW Std Deviation 47.5 H, RDW Coeff of Sailaja 14.8 H, Plt Count 162, MPV 11.7, Immature Gran % (Auto) 1.600 H, Neut % (Auto) 74.0 H, Lymph % (Auto) 15.1 L, [place] % (Auto) 7.8, Eos % (Auto) 0.9, Baso % (Auto) 0.6, Absolute Neuts (auto) 7.5, Absolute Lymphs (auto) 1.53, Nucleated RBC % 0, APTT 54.5 H, Sodium 137, Potassium 4.5, Chloride 108 H, Carbon Dioxide 24.0, Anion Gap 5, BUN 24 H, Creatinine 1.20, Estim Creat Clear Calc 55.61, Est GFR (MDRD) Af Amer 82, Est GFR (MDRD) Non-Af 67, BUN/Creatinine Ratio 20.0, Glucose 115 H, Calcium 8.9, Magnesium 2.5, B-Natriuretic Peptide 336.0 H Micro: Microbiology 07/01/23 16:52 Mucosa - Nose Coronavirus COVID-19 PCR - Final 07/01/23 16:52 Mucosa - Nose Respiratory Panel (PCR) - Final ABG Data ABG results: ABG 07/02/23 10:00 Specimen Type ART Sample Site L Radial pH 7.45 Bicarbonate Actual 19.8 L Total CO2 21 Base Excess -4 L O2 Saturation 95 ABG pCO2 28.6 L ABG pO2 68 L Mayank Test Positive O2 Delivery Device Cannula Liter Flow 7.0 Rhythm Strip Rhythm Strip: Sinus Tach Rate: 101 Ectopy: None Cardiology Labs/Tests 07/01/23 04:25: B-Natriuretic Peptide 247.6 H 07/02/23 05:13: WBC 10.1, RBC 4.84, Hgb 13.7, Hct 42.6, MCV 88.0, MCH 28.3, MCHC 32.2, Plt Count 162, MPV 11.7, Immature Gran % (Auto) 1.600 H, Neut % (Auto) 74.0 H, Lymph % (Auto) 15.1 L, [place] % (Auto) 7.8, Eos % (Auto) 0.9, Baso % (Auto) 0.6, Absolute Neuts (auto) 7.5, Nucleated RBC % 0, APTT 54.5 H, Sodium 137, Potassium 4.5, Chloride 108 H, Carbon Dioxide 24.0, Anion Gap 5, BUN 24 H, Creatinine 1.20, Est GFR (MDRD) Af Amer 82, Est GFR (MDRD) Non-Af 67, BUN/Creatinine Ratio 20.0, Glucose 115 H, Calcium 8.9, Magnesium 2.5, B-Natriuretic Peptide 336.0 H 07/02/23 10:00: pH 7.45, Bicarbonate Actual 19.8 L, Base Excess -4 L, O2 Saturation 95, ABG pCO2 28.6 L, ABG pO2 68 L, Mayank Test Positive Rhythm: EKG: ECHO: Stress Test: Cardiac Cath: PCI: CT Surgery: Holter monitor: EPS: PPM: CXR: Chest CT Scan: Radiography Diagnostic Testing: Radiology Impression Chest X-Ray 07/02/23 01:09 IMPRESSION: No radiographic evidence of acute cardiopulmonary disease. Electronically Signed: Aurora Danielson MD at 3:09 EDT , Echocardiogram 07/02/23 07:44 Interpretation Summary The estimated ejection fraction is 60 %. Severely dilated right ventricle. Severe global right ventricular systolic dysfunction. Right ventricular systolic pressure estimated to be 42 mmHg. The right atrium is moderately enlarged. Bubble contrast study is positive for PFO. Ordering Physician: Enrique Batista Referring Physician: SCOOTER PCP Performed By: Jazmyn Pedraza RCS Physical Exam Narrative Lying flat in the bed. Comfortable. No apparent distress. Heart sounds 1 and 2 noted. Chest clear to auscultation bilaterally. Alert oriented x3. No ankle edema. Assessment & Plan Assessment/Plan (1) Non-ST elevation PR (NSTEMI): PLAN: Likely type II. Only mild to moderate CAD noted on coronary angiography. Overall normal left ventricular systolic function. For medical management. (2) Coronary artery disease: PLAN: 30% LAD disease noted. For risk factor modification. (3) Hypertension: PLAN: Blood pressure actually on the lower side. Decrease lisinopril to 2.5 mg once daily. (4) Cor pulmonale: PLAN: Severely dilated right ventricle with severe RV systolic dysfunction. History of PE in the past. (5) Prostate cancer metastatic to bone: PLAN: As per oncology.
--- NOTE | 2023-07-02 14:34 | CL.D_ITS ---
Patient Name: DANTE EAST Study Date: 07/01/2023 Performing: Shayy Young MD Ht: 62.99 inches 160 cm : 1970 Wt: 236.09 lbs 107.09 kg Age: 52 Gender: male BSA: 2.07 PROCEDURE(S) PERFORMED [id number])LHC/COR/LV CLINICAL PROFILE AND INDICATIONS Indications: ACS > 24 hrs Heart Failure: None CAD Presentations: Non-STEMI. Symptom onset Date/Time: Time Not Available CONCLUSIONS 30% Prox/Mid RCA RECOMMENDATIONS Risk factor modification Medical therapy DESCRIPTION OF PROCEDURE The patient arrived to the procedure lab. The risks and benefits of the procedure as well as a full description of our services here and current unavailability of surgical backup were fully explained to the patient and/or their significant other prior to the catheterization. The Timeout was completed, verifying the correct patient and procedure. The patient's procedural site was prepped and draped in the usual fashion. Local anesthetic was given subcutaneously to right radial region with Lidocaine 2%. Using a modified Seldinger technique, arterial access was obtained via the right radial artery, a 6Fr sheath was inserted. Left Coronary Artery selective angiography was performed in multiple views using a 5 Fr. 4.0 Girdletree catheter. Right Coronary Artery selective angiography was then performed in multiple views using a 5 Fr. 4.0 Girdletree catheter. Left Ventriculography was performed in DYER projection using a 5 Fr. Pigtail catheter. LV to AO pullback pressures were then recorded.The arterial sheath was pulled and a TR Band was applied for hemostasis CORONARY ANGIOGRAPHY DOMINANCE: Right Dominant LEFT HEART ASSESSMENT Left Ventricular Ejection Fraction: by LV Gram 55 % LVEDP: 22 mmHg LEFT MAIN: Angiographically normal LEFT ANTERIOR DESCENDING ARTERY: Angiographically normal CIRCUMFLEX ARTERY: Angiographically normal RIGHT CORONARY ARTERY: RCA: Tubular 50% Proximal lesion in RCA COMPLICATIONS No Complications PROCEDURE MEDICATIONS Versed 1 mg IV Fentanyl 50 mcg IV Oxygen: 6 L/min via nasal cannula Heparin given IA 07/01/2023 15:40:42 Verapamil 2.5mg, Ntg 200mcgs, 2000 units of Heparin given IA 07/01/2023 15:40:42 IV Bolus: .9 NaCl 500 ml total 07/01/2023 15:43:26 SUMMARY OF HEMODYNAMIC DATA Time AIR REST ECG 15:07:37 AO 80/68 (74) SA 15:42:01 LV 110/3, 23 15:47:12 LV 113/3, 22 15:47:20 LV 116/9, 20 15:50:11 LVp 112/-1, 20 15:50:16 AOp 108/75 (88) 15:50:23 Signed By Shayy Young MD On 07/02/2023 14:34:00 Shayy Young MD
[2023-07-02] MEDS: 0.9% Saline Lock 10 ML Syringe IV ×2 (16:07→21:34)
[2023-07-02] MEDS: Rivaroxaban 20 MG Tablet PO (18:59)
[2023-07-02] MEDS: Albuterol 2.5 MG/3 ML VIAL.NEB. INHALATION (19:00)
[2023-07-02] MEDS: Budesonide Respules 0.5 MG/2 ML AMPUL.NEB. INHALATION (19:00)
[2023-07-02] MEDS: Atorvastatin Calcium 40 MG Tablet PO (21:33)
[2023-07-03] VITALS (22 sets, daily range): BP systolic 93–118; BP diastolic 59–86; PULSE 80–100; RESP 14–31; TEMP 36.4–37.1; O2SAT 72–95
[2023-07-03] MEDS: Morphine 2 MG/ML Syringe IV ×2 (03:25→09:05)
[2023-07-03 06:09] LABS: Absolute Lymphocyte Count 1.54 X10^3/uL (0.83-4.51); Absolute Neutrophil Count 7.4 X10^3/uL (2.0-7.7); Basophil# 0.04 X10^3/uL; Basophil% 0.4 % (0-1); Eosinophil# 0.09 X10^3/uL; Eosinophils% 0.9 % (0-5); Hematocrit 38.9 % (40-54); Hemoglobin 12.7 g/dL (13.0-16.5); Lymphocyte # 1.54 X10^3/ul (0.83-4.51); Lymphocyte % 15.2 % (19-41); Mean Corp Hgb Conc 32.6 g/dL (32-36); Mean Corpuscular Hgb 28.6 pg (27.0-32.0); Mean Corpuscular Volume 87.6 fL (80-94); Mean Platelet Vol. 11.8 fl (6.2-12.0); Monocyte# 0.86 X10^3/uL; Monocyte% 8.5 % (0-10); NRBC Flagged by Analyzer 0 % (0-5); Neutrophil # 7.44 X10^3/uL (2.7-7.7); Neutrophil % 73.4 % (47-70); Platelet Count 141 K/mm3 (150-450); RBC Distribution Width SD 46.9 fl (35.1-43.9); Red Blood Count 4.44 M/mm3 (4.6-6.2); White Blood Count 10.1 K/mm3 (4.4-11.0)
--- NOTE | 2023-07-03 06:24 | PN.HOSP_ITS ---
Reason for Visit Reason for Visit: Diagnoses Malignant neoplasm of prostate (06/28/23) Secondary malignant neoplasm of bone (06/28/23) Essential (primary) hypertension (06/28/23) Non-ST elevation (NSTEMI) myocardial infarction (06/28/23) Atherosclerotic heart disease of [place] coronary artery without angina pectoris (06/28/23) Cor pulmonale (chronic) (06/28/23) Other forms of dyspnea (06/28/23) Subjective Subjective Patient with no acute events overnight per self and per nursing report. This morning patient remained on 6 L nasal cannula with dyspnea primarily when he exerts himself however did perform a.m. oxygenation trial to assess ability for potential discharge with continued follow-up outpatient with specialist versus need for transfer and fortunately he significantly desaturated into the 80s with exertion even a few rooms down requiring him to stop and temporarily be placed on high flow to improve his saturations. Upon reevaluation following this he states he feels fatigued but does not feel short of breath at this time. He understands that transfer is in his best interest and that pulmonary critical care believes it best for him to see a congenital cardiac/pulmonary hypertensive specialist. He does report that he is been coughing less. Patient denies fevers, chills, nausea, emesis, abdominal pain, chest pain. Objective Data Objective Data Vital Signs: Vital Signs Temp Pulse Resp BP Pulse Ox O2 Del Method O2 Flow Rate 98 F 83 16 104/68 94 Nasal Cannula 6 07/03/23 03:00 07/03/23 03:00 07/03/23 03:00 07/03/23 03:00 07/03/23 03:00 07/03/23 03:00 07/03/23 03:00 Oxygen Flow Rate (L/min) 6 Oxygen Delivery Method Nasal Cannula Weight: 236 lb 1.6 oz Body Mass Index (BMI) 41.8 Intake & Output: Intake and Output for Last 24 Hours 07/01/23 07/02/23 07/03/23 23:59 23:59 23:59 Intake Total 1075.66 / 1075.66 1928.33 / 2248.33 440 / 440 Balance 1075.66 / 1075.66 1928.33 / 2248.33 440 / 440 Lab / Micro Data 07/03/23 05:25 07/03/23 05:25 Labs: Laboratory Results - last 24 hr 07/02/23 05:13: B-Natriuretic Peptide 336.0 H 07/03/23 05:25: WBC 10.1, RBC 4.44 L, Hgb 12.7 L, Hct 38.9 L, MCV 87.6, MCH 28.6 , MCHC 32.6, RDW Std Deviation 46.9 H, RDW Coeff of Sailaja 15.0 H, Plt Count 141 L, MPV 11.8, Immature Gran % (Auto) 1.600 H, Neut % (Auto) 73.4 H, Lymph % (Auto) 15.2 L, [place] % (Auto) 8.5, Eos % (Auto) 0.9, Baso % (Auto) 0.4, Absolute Neuts (auto) 7.4, Absolute Lymphs (auto) 1.54, Nucleated RBC % 0 Micro: Microbiology 07/01/23 16:52 Mucosa - Nose Coronavirus COVID-19 PCR - Final 07/01/23 16:52 Mucosa - Nose Respiratory Panel (PCR) - Final 06/28/23 11:10 Nasal Secretion SARS-CoV-2 & FLU Antigen (Rapid) - Final ABG Data ABG results: ABG 07/02/23 10:00 Specimen Type ART Sample Site L Radial pH 7.45 Bicarbonate Actual 19.8 L Total CO2 21 Base Excess -4 L O2 Saturation 95 ABG pCO2 28.6 L ABG pO2 68 L Mayank Test Positive O2 Delivery Device Cannula Liter Flow 7.0 Radiography Diagnostic Testing: Radiology Impression Echocardiogram 07/02/23 07:44 Interpretation Summary The estimated ejection fraction is 60 %. Severely dilated right ventricle. Severe global right ventricular systolic dysfunction. Right ventricular systolic pressure estimated to be 42 mmHg. The right atrium is moderately enlarged. Bubble contrast study is positive for PFO. Ordering Physician: Enrique Batista Referring Physician: NO PCP Performed By: Jazmyn Pedraza RCS Rhythm Strip Rhythm Strip: Sinus Tach Rate: 101 Ectopy: None Physical Exam Narrative Physical Examination: General: Awake, alert, oriented x 3 and cooperative, laying in the PCU bed, f atigued but otherwise no acute distress. Skin: Normal color, normal turgor, no icterus, no cyanosis except occasional staged ecchymoses likely from lab draws to the extremities. HEENT: AT/NC, EOMI, PERRLA, MMM. Lungs: Clear to auscultation, mildly diminished at bases, proper effort, no coughing with examination today, no rales, rhonchi or wheezing. Heart: Regular rate and rhythm; no gallop, rub audible. Abdomen: Soft, NTTP, ND, normal BS. Extremities: No cyanosis, clubbing, or edema. Neurological: Patient awake, alert, oriented as noted, cognitive function intact; pupils equally reactive to light and accommodation, cranial nerves II- XII grossly normal, moving all 4 extremities, no focal deficits, strength moderately global decrease secondary to acute presentation and underlying metastatic cancer with chronic pain as well as increased oxygen requirements. Psychiatric: Affect appears fatigued, no acute evidence of depressive or anxiety feelings. Assessment & Plan Assessment/Plan (1) Non-ST elevation UT (NSTEMI): PLAN: Plan The patient is a 52 y/o M w/ PMHx: Morbid obesity, Metastatic Prostate Cancer, Hx DVT/PE, HTN who presents to the [facility] ED on 06/28/23 with history of cough and d yspnea with no specific chest discomfort but increased fatigue and malaise as well as lightheadedness worse with activity prompting eventual ED evaluation. #1. Acute NSTEMI suspected more likely type II with demand with #2 as noted: EKG in ED w/ sinus tachycardia with nonspecific T wave inversions with no acute evidence of ischemia, chest x-ray unremarkable, CTPA with no evidence of PE with findings suggestive of metastatic deposits involving the cervical and visualized thoracic vertebrae, Trop elevated, 293->251->288. Maintained in the PCU, maintained on a monitored bed, initiated on a heparin drip until postcardiac catheterization and then transition 07/01/2023 2 appropriate dosing of Xarelto, 06/28/2023 echocardiogram with EF 55 to 60%, overall normal LV systolic function, mild TR, contrast echo performed, maintained on aspirin, continue medical management w/ asa, added moderate dose BB per Cardiology recommendation but defer to their preference, added atorvastatin 40 mg daily per Cardiology recommendation but defer to their preference, FLP w/ TG 77, TChol 106, LDL 39, VLDL 15, HDL 52. Mag requested. Cardiology consulted and s/p 07/01/23 cardiac catheterization with no marked cardiac disease with noted approximate 30% proximal/mid RCA disease with recommendation of risk factor modification and medical therapy. Given increased oxygen requirement Pulmonary ordered limited ECHO with bubble with noted EF 60%, severely dilated RV, severe global RV systolic dysfunction, RV systolic pressure estimated 42 mmHg, moderately enlarged RA with bubble contrast study positive for PFO. Unfortunately 07/03/2023 oxygenation trial with significant hypoxia and symptomatic exertional dyspnea therefore per discussion with pulmonary medicine/critical care, cardiology decision at this time to transfer patient to tertiary care facility to be evaluated by congenital heart/pulmonary hypertensive specialist. #2. 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 Repeat chest x-rays with no obvious acute cardiopulmonary findings. As noted above limited ECHO with bubble with noted EF 60%, severely dilated RV, severe global RV systolic dysfunction, RV systolic pressure estimated 42 mmHg, moderately enlarged RA with bubble contrast study positive for PFO. Unfortun ately 07/03/2023 oxygenation trial with significant hypoxia and symptomatic exertional dyspnea therefore per discussion with pulmonary medicine/critical care, cardiology decision at this time to transfer patient to tertiary care facility to be evaluated by congenital heart/pulmonary hypertensive specialist. #3. Metastatic prostate cancer: Noted to be to the bone as well as from CT imaging to the spine, suspect patient to transient paresthesias likely related, CT of the head with no acute findings, reported surgical intervention approximately 1 year prior, per discussion with patient he already has follow-up oncological plan and deferred any further concept of MRI imaging of his spine given CTA findings as he is aware of these metastatic foci with planned initiation of treatment following his discharge. We will continue patient home prednisone therapy, holding abiraterone as not available and patient does not have his home regimen. Also secondary to chronic pain associated offered pa lliative consultation which patient declined at this time. Patient [facility] care team Dr. Moreland [phone] attempted to be contacted and VM left, awaiting call back. If no answer soon will attempt to reach out to his CM at that facility [facility] [phone]. #4. Chronic back pain w/ Metastatic Prostate CA w/ transient acute paresthesias LE: Improved, suspect unfortunately related with his metastatic cancer, CT head unremarkable, NIHSS 0 as resolved, continue evaluation #1 as noted. Per discussion with patient he already has follow-up oncological plan and deferred any further concept of MRI imaging of his spine given CTA findings as he is aware of these metastatic foci with planned initiation of treatment following his discharge. Also secondary to chronic pain associated offered palliative consultation which patient declined at this time. #4. Chronic normocytic anemia: Likely related with his underlying CA, admission Hgb 14.7, most recent repeat Hgb 07/01/23 12.5-->07/03/22 Hgb 12.7, has remained 12 range, suspect initially falsely elevated. #5. History of VTE/DVT: s/p prior IVCF of note. Patient upon presentation Xarelto held with heparin drip however added back oral Xarelto 10/31/2023 at current dose which was discussed with pharmacy and they noted it could be transition to 20 mg daily as his cancer center had had him on 10 mg daily without restarting the loading section. #6. Hypertension: Continue home regimen including lisinopril, low-dose Coreg a dded per cardiology recommendation, PRN hydralazine. #7. Morbid Obesity: Weight loss and lifestyle changes encouraged. #8. DVT prophylaxis: Heparin drip transition to Xarelto 07/01/2023 20 mg daily. #9. CODE status: DNR-CCA, no intubation. Charges/Coding Visit Charges Inpatient E&M: 24876 Subs Hosp L2
[2023-07-03 06:44] LABS: ALB/GLOB Ratio 0.6 RATIO (0.9-2.4); AST(SGOT) 76 U/L (15-37); Alanine Aminotransfer ALT/SGPT 44 U/L (16-61); Albumin, Serum 2.6 g/dL (3.2-5.0); Alkaline Phosphatase 256 U/L (45-117); Anion Gap 6 (5-15); BUN 29 mg/dL (7-18); BUN/Creat Ratio 26.1 RATIO (10-20); Calcium,Total 8.6 mg/dL (8.5-10.1); Chloride 108 mmol/L (98-107); Creatinine, Serum 1.11 mg/dL (0.70-1.30); EST Glomerular Filtration Rate 74 mL/min (>60); Est Glom Filt Rate - Afr Amer 89 mL/min (>60); Estimated Creatinine Clearance 60.12 ml/min; Globulin 4.4 g/dL (2.2-4.2); Glucose 106 mg/dL (74-106); Potassium 4.8 mmol/L (3.5-5.1); Sodium Level 138 mmol/L (136-145)
[2023-07-03] MEDS: Budesonide Respules 0.5 MG/2 ML AMPUL.NEB. INHALATION ×2 (07:15→19:25)
--- NOTE | 2023-07-03 07:32 | PN.CC_ITS ---
Assessment & Plan Assessment/Plan (1) Dyspnea on exertion: PLAN: Plan RECOMMENDATIONS: 1. Supplemental oxygen for saturations greater than 90%. 2. Gentle diuresis as tolerated by hemodynamics and renal function. 3. Encourage incentive spirometer use and mobilize patient as tolerated. 4. Consider referral to tertiary care facility to be evaluated by congenital heart/pulmonary hypertension specialist. IMPRESSIONS: 1. Shortness of breath and hypoxemia The patient initially presented to the hospital with cough and dyspnea in the setting of an NSTEMI. He was taken for cardiac catheterization, which apparently showed no culprit lesions. CTA was negative for PE. There was no significant pulmonary parenchymal abnormalities. Despite this, the patient remained hypoxemic. Follow-up echocardiogram with bubble study demonstrated a severely dilated RV with severe global RV systolic dysfunction, pulmonary artery systolic pressure of 42 mmHg and a patent foramen ovale. The patient has been tolerant of diuresis but continues to desaturate with any form of exertion. With this in mind, recommend referral to a tertiary care facility to be evaluated by a congenital heart/pulmonary hypertension specialist. 2. NSTEMI Management per cardiology recommendations. 3. History of metastatic prostate cancer/history of VTE /hypertension/obesity Complicates care, management, recovery and prognosis. Continue home medications as indicated. This note was generated with [employer] dictation software. It may contain incorrect words, spelling, and punctuation that were not noted in checking the note before signing. Subjective Subjective The patient was seen and examined at the bedside this morning. Events from the last 24 hours have been reviewed. The patient is currently afebrile, hemodynamically stable and maintaining appropriate oxygen saturations on 6 L/min via nasal cannula. Echocardiogram completed yesterday did reveal a patent foramen ovale along with pulmonary hypertension, severe RV dilation and RV dysfunction. The patient has been tolerant of diuresis. The patient is still quite short of breath with exertion. He did drop his oxygen saturations when ambulating in the hallway. Objective Data Objective Data The patient's most recent lab work, culture data and imaging studies have all been personally reviewed. Vital Signs: Vital Signs Temp Pulse Resp BP Pulse Ox O2 Del Method O2 Flow Rate 98 F 83 16 104/68 94 Nasal Cannula 6 07/03/23 03:00 07/03/23 03:00 07/03/23 03:00 07/03/23 03:00 07/03/23 03:00 07/03/23 03:00 07/03/23 03:00 Oxygen Flow Rate (L/min) 6 Oxygen Delivery Method Nasal Cannula Weight: 236 lb 1.6 oz Body Mass Index (BMI) 41.8 Intake & Output: Intake and Output for Last 24 Hours 07/01/23 07/02/23 07/03/23 23:59 23:59 23:59 Intake Total 1075.66 / 1075.66 1928.33 / 2248.33 440 / 440 Balance 1075.66 / 1075.66 1928.33 / 2248.33 440 / 440 Lab / Micro Data Attestation: I reviewed the patient's lab results. 07/03/23 05:25 07/03/23 05:25 Labs: Laboratory Results - last 24 hr 07/02/23 05:13: B-Natriuretic Peptide 336.0 H 07/03/23 05:25: WBC 10.1, RBC 4.44 L, Hgb 12.7 L, Hct 38.9 L, MCV 87.6, MCH 28.6, MCHC 32.6, RDW Std Deviation 46.9 H, RDW Coeff of Sailaja 15.0 H, Plt Count 141 L, MPV 11.8, Immature Gran % (Auto) 1.600 H, Neut % (Auto) 73.4 H, Lymph % (Auto) 15.2 L, [place] % (Auto) 8.5, Eos % (Auto) 0.9, Baso % (Auto) 0.4, Absolute Neuts (auto) 7.4, Absolute Lymphs (auto) 1.54, Nucleated RBC % 0, Sodium 138, Potassium 4.8, Chloride 108 H, Carbon Dioxide 24.0, Anion Gap 6, BUN 29 H, Creatinine 1.11, Estim Creat Clear Calc 60.12, Est GFR (MDRD) Af Amer 89, Est GFR (MDRD) Non-Af 74, BUN/Creatinine Ratio 26.1 H, Glucose 106, Calcium 8.6, Total Bilirubin 1.10 H, AST 76 H, ALT 44, Alkaline Phosphatase 256 H, Total Protein 7.0, Albumin 2.6 L, Globulin 4.4 H, Albumin/Globulin Ratio 0.6 L Micro: Microbiology 07/01/23 16:52 Mucosa - Nose Coronavirus COVID-19 PCR - Final 07/01/23 16:52 Mucosa - Nose Respiratory Panel (PCR) - Final 06/28/23 11:10 Nasal Secretion SARS-CoV-2 & FLU Antigen (Rapid) - Final ABG Data ABG results: ABG 07/02/23 10:00 Specimen Type ART Sample Site L Radial pH 7.45 Bicarbonate Actual 19.8 L Total CO2 21 Base Excess -4 L O2 Saturation 95 ABG pCO2 28.6 L ABG pO2 68 L Mayank Test Positive O2 Delivery Device Cannula Liter Flow 7.0 Radiography Diagnostic Testing: Radiology Impression Echocardiogram 07/02/23 07:44 Interpretation Summary The estimated ejection fraction is 60 %. Severely dilated right ventricle. Severe global right ventricular systolic dysfunction. Right ventricular systolic pressure estimated to be 42 mmHg. The right atrium is moderately enlarged. Bubble contrast study is positive for PFO. Ordering Physician: Enrique Batista Referring Physician: SCOOTER PCP Performed By: Jazmyn Pedraza RCS Rhythm Strip Rhythm Strip: Sinus Tach Rate: 101 Ectopy: None Physical Exam Const alert and no apparent distress General Appearance: cooperative HEENT normocephalic and head/scalp atraumatic Eyes PERRL, EOMs intact bilaterally and conjunctivae normal Neck supple General: trachea midline Chest inspection of chest normal Resp normal respiratory effort Auscultation: Negative for rales, rhonchi or wheezes Cardio regular rate and regular rhythm GI normal to inspection, nondistended, normoactive bowel sounds Extremity no clubbing, cyanosis or edema Skin no rashes or lesions noted Neuro oriented x3, CN's II-XII intact bilaterally and moves all extremities Psych cooperative and affect normal Charges/Coding Visit Charges Inpatient E&M: 96610 Subs Hosp L2
[2023-07-03] MEDS: Aspirin 81 MG TAB.CHEW PO (09:05)
[2023-07-03] MEDS: Furosemide 40 MG/4 ML Vial IV (10:28)
[2023-07-03] MEDS: predniSONE 5 MG Tablet PO ×2 (10:28→17:00)
[2023-07-03] MEDS: guaiFENesin 1,200 MG Tablet 1200 MG PO ×2 (10:28→20:59)
[2023-07-03] MEDS: Magnesium Chloride 64 MG Delay Rel.Tablet 128 MG PO (10:28)
[2023-07-03] MEDS: Ketorolac 15 MG/ML Vial IV ×2 (10:28→20:59)
[2023-07-03] MEDS: Ascorbic Acid 500 MG Tablet PO (10:29)
[2023-07-03] MEDS: Cholecalciferol (VIT D3) 25 MCG TABLET (1,000 UNITS) 50 MCG PO (10:29)
[2023-07-03] MEDS: Rivaroxaban 20 MG Tablet PO (17:00)
[2023-07-03] MEDS: Carvedilol 6.25 MG Tablet PO (20:59)
[2023-07-03] MEDS: Atorvastatin Calcium 40 MG Tablet PO (20:59)
[2023-07-03] MEDS: 0.9% Saline Lock 10 ML Syringe IV (20:59)
--- NOTE | 2023-07-03 23:14 | PCM.HOSP.N ---
Hospitalist Note Called for increased work of breathing and worsening oxygenation status on Airvo. Patient has been titrated up to 90% with a flow of 60 L/min. And remains tachypneic. He is in no intubate. We will trial BiPAP with AVAPS and check a stat ABG. Patient is a DNR CCA with no intubation. Patient has been accepted at [facility] and transfer is pending bed availability.
[2023-07-04] VITALS (31 sets, daily range): BP systolic 106–127; BP diastolic 60–95; PULSE 73–96; RESP 12–30; TEMP 36.1–36.7; O2SAT 89–97
[2023-07-04] LABS: Allen Test Positive; Base Excess -4 mmol/L (-2 to +2); Bicarbonate 20.4 mmol/L (22-26); Blood Gas Specimen Type ART; O2 Delivery Device HFNC; PO2 65 mmHG (75-100); SITE L Radial; SO2 93 % (95-99); Total Carbon Dioxide 21 mmol/L; pCO2 29.9 mmHg (35-45); pH 7.44 (7.35-7.45)
[2023-07-04] MEDS: Morphine 2 MG/ML Syringe IV (05:25)
[2023-07-04] MEDS: 0.9% Saline Lock 10 ML Syringe IV ×3 (05:26→21:51)
--- NOTE | 2023-07-04 06:24 | PCM.PN.HOSP ---
Reason for Visit Reason for Visit: Diagnoses Malignant neoplasm of prostate (06/28/23) Secondary malignant neoplasm of bone (06/28/23) Essential (primary) hypertension (06/28/23) Non-ST elevation (NSTEMI) myocardial infarction (06/28/23) Atherosclerotic heart disease of [place] coronary artery without angina pectoris (06/28/23) Cor pulmonale (chronic) (06/28/23) Other forms of dyspnea (06/28/23) Subjective Subjective Patient unfortunately overnight with increased respiratory needs and did eventually vacillate between Airvo and BiPAP, transition back to Airvo today and per discussion with pulmonary medicine did receive an additional IV Lasix x1 however given his current cardiopulmonary status preferentially will attempt to avoid BiPAP and further Lasix as this potentially could exacerbate his shunt. [facility] updated on patient's status with increasing respiratory needs to hopefully move him up on the list for transfer potential and with his change in status they are attempting instead to place him on a MICU. Awaiting discussions at this time with their team. Discussed status with patient and concerns and his was contacted also and updated on his current status. He notes his coughing has been mildly worse and he does feel short of breath, worse with any exertional attempts. He also states his body is very achy and his back is hurting him more than he had previously but unfortunately he has not been able to move much because of his hypoxia. Patient denies fevers, chills, nausea, emesis, abdominal pain, chest pain. Objective Data Objective Data Vital Signs: Vital Signs Temp Pulse Resp BP Pulse Ox O2 Del Method O2 Flow Rate 97.2 F L 91 26 H 116/83 H 94 Bi-pap 15 07/04/23 04:25 07/04/23 05:00 07/04/23 05:00 07/04/23 05:00 07/04/23 05:00 07/04/23 05:00 07/04/23 00:00 FiO2 45 07/04/23 05:00 Oxygen Flow Rate (L/min) [ 8 AMBULATING with Oxygen #1] Oxygen Flow Rate (L/min) [At 6 REST with Oxygen] Oxygen Flow Rate (L/min) 15 Oxygen Delivery Method Bi-pap Weight: 236 lb 1.6 oz Body Mass Index (BMI) 41.8 Intake & Output: Intake and Output for Last 24 Hours 07/02/23 07/03/23 07/04/23 23:59 23:59 23:59 Intake Total 1928.33 / 2248.33 680 / 680 Output Total 300 / 300 Balance 1928.33 / 2248.33 680 / 680 -300 / -300 Lab / Micro Data 07/04/23 06:10 07/04/23 06:10 Labs: Laboratory Results - last 24 hr 07/03/23 05:25: Sodium 138, Potassium 4.8, Chloride 108 H, Carbon Dioxide 24.0, Anion Gap 6, BUN 29 H, Creatinine 1.11, Estim Creat Clear Calc 60.12, Est GFR (MDRD) Af Amer 89, Est GFR (MDRD) Non-Af 74, BUN/Creatinine Ratio 26.1 H, Glucose 106, Calcium 8.6, Total Bilirubin 1.10 H, AST 76 H, ALT 44, Alkaline Phosphatase 256 H, Total Protein 7.0, Albumin 2.6 L, Globulin 4.4 H, Albumin/Globulin Ratio 0.6 L Micro: Microbiology 07/01/23 16:52 Mucosa - Nose Coronavirus COVID-19 PCR - Final 07/01/23 16:52 Mucosa - Nose Respiratory Panel (PCR) - Final 06/28/23 11:10 Nasal Secretion SARS-CoV-2 & FLU Antigen (Rapid) - Final ABG Data ABG results: ABG 07/03/23 23:55 Specimen Type ART Sample Site L Radial pH 7.44 Bicarbonate Actual 20.4 L Total CO2 21 Base Excess -4 L O2 Saturation 93 L ABG pCO2 29.9 L ABG pO2 65 L Mayank Test Positive O2 Delivery Device HFNC Liter Flow 15.0 Rhythm Strip Rhythm Strip: Sinus Tach Rate: 101 Ectopy: None Physical Exam Narrative Physical Examination: General: Awake, alert, oriented x 3 and cooperative, laying in the PCU bed, fatigued, uncomfortable appearing, worsened appearance the day prior, currently on air Vo. Skin: Normal color, normal turgor, no icterus, no cyanosis except occasional staged ecchymoses likely from lab draws to the extremities. HEENT: AT/NC, EOMI, PERRLA, mildly dry MM, Airvo in place. Lungs: Mildly diminished at bases, mildly increased respiratory rate but no obvious distress, Airvo in place, more coughing today during evaluation than prior, no obvious rales, rhonchi or wheezing appreciated. Heart: Regular rate and rhythm; no gallop, rub audible. Abdomen: Soft, NTTP, ND, normal BS. Extremities: No cyanosis, clubbing, or edema. Neurological: Patient awake, alert, oriented as noted, cognitive function intact; pupils equally reactive to light and accommodation, cranial nerves II-XII grossly normal, moving all 4 extremities, no focal deficits, strength severely global decrease secondary to acute presentation, worsening respiratory status and underlying metastatic cancer with chronic pain worse today than days prior. Psychiatric: Affect appears fatigued, more ill-appearing, no acute evidence of depressive or anxiety feelings. Assessment & Plan Assessment/Plan (1) Non-ST elevation IN (NSTEMI): PLAN: Plan The patient is a 52 y/o M w/ PMHx: Morbid obesity, Metastatic Prostate Cancer, Hx DVT/PE, HTN who presents to the [facility] ED on 06/28/23 with history of cough and dyspnea with no specific chest discomfort but increased fatigue and malaise as well as lightheadedness worse with activity prompting eventual ED evaluation. #1. 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 Repeat chest x-rays with no obvious acute cardiopulmonary findings. As noted above limited ECHO with bubble with noted EF 60%, severely dilated RV, severe global RV systolic dysfunction, RV systolic pressure estimated 42 mmHg, moderately enlarged RA with bubble contrast study positive for PFO. Unfortunately 07/03/2023 oxygenation trial with significant hypoxia and symptomatic exertional dyspnea therefore per discussion with pulmonary medicine/critical care, cardiology decision at this time to transfer patient to tertiary care facility to be evaluated by congenital heart/pulmonary hypertensive specialist. Patient accepted at [facility] under Pulmonary HTN service with Cardiology consultation, discussed case with both services, accepted under Dr. Hancock, form signed and placed on the chart. 07/03/23 overnight with increased oxygen needs, placed on BIPAP initially however transition to Airvo with pulse dose IV Lasix x1 again and per discussion with pulmonary critical care will attempt a defer BiPAP and further Lasix as able as this may be exacerbating his shunt and worsening his situation. Updated [facility] and at this time awaiting callback from the MICU team given his Airvo high flow needs at this time. #2. Acute NSTEMI suspected more likely type II with demand with #2 as noted: EKG in ED w/ sinus tachycardia with nonspecific T wave inversions with no acute evidence of ischemia, chest x-ray unremarkable, CTPA with no evidence of PE with findings suggestive of metastatic deposits involving the cervical and visualized thoracic vertebrae, Trop elevated, 293->251->288. Maintained in the PCU, maintained on a monitored bed, initiated on a heparin drip until postcardiac catheterization and then transition 07/01/2023 2 appropriate dosing of Xarelto, 06/28/2023 echocardiogram with EF 55 to 60%, overall normal LV systolic function, mild TR, contrast echo performed, maintained on aspirin, continue medical management w/ asa, added moderate dose BB per Cardiology recommendation but defer to their preference, added atorvastatin 40 mg daily per Cardiology recommendation but defer to their preference, FLP w/ TG 77, TChol 106, LDL 39, VLDL 15, HDL 52. Mag requested. Cardiology consulted and s/p 07/01/23 cardiac catheterization with no marked cardiac disease with noted approximate 30% proximal/mid RCA disease with recommendation of risk factor modification and medical therapy. Given increased oxygen requirement Pulmonary ordered limited ECHO with bubble with noted EF 60%, severely dilated RV, severe global RV systolic dysfunction, RV systolic pressure estimated 42 mmHg, moderately enlarged RA with bubble contrast study positive for PFO. Unfortunately 07/03/2023 oxygenation trial with significant hypoxia and symptomatic exertional dyspnea therefore per discussion with pulmonary medicine/critical care, cardiology decision at this time to transfer patient to tertiary care facility to be evaluated by congenital heart/pulmonary hypertensive specialist with acceptance as noted above #1. #3. Metastatic prostate cancer: Noted to be to the bone as well as from CT imaging to the spine, suspect patient to transient paresthesias likely related, CT of the head with no acute findings, reported surgical intervention approximately 1 year prior, per discussion with patient he already has follow-up oncological plan and deferred any further concept of MRI imaging of his spine given CTA findings as he is aware of these metastatic foci with planned initiation of treatment following his discharge. We will continue patient home prednisone therapy, holding abiraterone as not available and patient does not have his home regimen. Also secondary to chronic pain associated offered palliative consultation which patient declined at this time. Patient [facility] care team Dr. Moreland [phone] contacted and 07/03/23 evening discussed his current status and plan of care. #4. Chronic back pain w/ Metastatic Prostate CA w/ transient acute paresthesias LE: Improved, suspect unfortunately related with his metastatic cancer, CT head unremarkable, NIHSS 0 as resolved, continue evaluation #1 as noted. Per discussion with patient he already has follow-up oncological plan and deferred any further concept of MRI imaging of his spine given CTA findings as he is aware of these metastatic foci with planned initiation of treatment following his discharge. Also secondary to chronic pain associated offered palliative consultation which patient declined at this time. #4. Chronic normocytic anemia: Likely related with his underlying CA, admission Hgb 14.7, most recent repeat Hgb 07/03/22 Hgb 12.7-->07/03/23 Hgb 13.2-->07/04/23 Hgb 13.2. #5. History of VTE/DVT: s/p prior IVCF of note. Patient upon presentation Xarelto held with heparin drip however added back oral Xarelto 10/31/2023 at current dose which was discussed with pharmacy and they noted it could be transition to 20 mg daily as his cancer center had had him on 10 mg daily without restarting the loading section. Did discuss patient's anticoagulation with [facility] cancer team who is taking care of him and they noted when he presented to them they did perform CTPA as well as duplexes on his extremities and he had no PEs at that time and unfortunately had been taking Coumadin without checking INR because of cost therefore at that time they opted to place him on the prophylactic dose only since he had no active findings. #6. Hypertension: Continue home regimen including lisinopril, low-dose Coreg added per cardiology recommendation, PRN hydralazine. #7. Morbid Obesity: Weight loss and lifestyle changes encouraged. #8. DVT prophylaxis: Heparin drip transition to Xarelto 07/01/2023 20 mg daily. #9. CODE status: DNR-CCA, no intubation. Charges/Coding Visit Charges Inpatient E&M: 97352 Subs Hosp L2
[2023-07-04 06:54] LABS: Absolute Lymphocyte Count 1.23 X10^3/uL (0.83-4.51); Absolute Neutrophil Count 9.3 X10^3/uL (2.0-7.7); Basophil# 0.05 X10^3/uL; Basophil% 0.4 % (0-1); Eosinophil# 0.03 X10^3/uL; Eosinophils% 0.2 % (0-5); Hemoglobin 13.2 g/dL (13.0-16.5); Lymphocyte # 1.23 X10^3/ul (0.83-4.51); Lymphocyte % 10.2 % (19-41); Mean Corpuscular Hgb 28.6 pg (27.0-32.0); Mean Corpuscular Volume 86.8 fL (80-94); Mean Platelet Vol. 12.4 fl (6.2-12.0); Monocyte# 1.19 X10^3/uL; Monocyte% 9.9 % (0-10); NRBC Flagged by Analyzer 0 % (0-5); Neutrophil # 9.26 X10^3/uL (2.7-7.7); Neutrophil % 76.9 % (47-70); Platelet Count 137 K/mm3 (150-450); RBC Distribution Width CV 15.1 % (11.6-14.6); RBC Distribution Width SD 46.5 fl (35.1-43.9); Red Blood Count 4.61 M/mm3 (4.6-6.2); White Blood Count 12.1 K/mm3 (4.4-11.0)
[2023-07-04] MEDS: Budesonide Respules 0.5 MG/2 ML AMPUL.NEB. INHALATION ×2 (07:20→19:44)
[2023-07-04 07:44] LABS: ALB/GLOB Ratio 0.6 RATIO (0.9-2.4); AST(SGOT) 99 U/L (15-37); Alanine Aminotransfer ALT/SGPT 51 U/L (16-61); Albumin, Serum 2.7 g/dL (3.2-5.0); Alkaline Phosphatase 318 U/L (45-117); Anion Gap 7 (5-15); BUN 30 mg/dL (7-18); BUN/Creat Ratio 28.3 RATIO (10-20); Calcium,Total 8.5 mg/dL (8.5-10.1); Chloride 108 mmol/L (98-107); Creatinine, Serum 1.06 mg/dL (0.70-1.30); EST Glomerular Filtration Rate 78 mL/min (>60); Est Glom Filt Rate - Afr Amer 94 mL/min (>60); Estimated Creatinine Clearance 62.96 ml/min; Globulin 4.6 g/dL (2.2-4.2); Glucose 108 mg/dL (74-106); Potassium 4.5 mmol/L (3.5-5.1); Protein, Total 7.3 g/dL (6.4-8.2); Sodium Level 136 mmol/L (136-145)
[2023-07-04] MEDS: predniSONE 5 MG Tablet PO ×2 (08:42→16:44)
[2023-07-04] MEDS: oxyCODONE 5 MG Tablet PO ×3 (08:42→21:50)
[2023-07-04] MEDS: Aspirin 81 MG TAB.CHEW PO (08:42)
[2023-07-04] MEDS: Magnesium Chloride 64 MG Delay Rel.Tablet 128 MG PO (08:43)
[2023-07-04] MEDS: Carvedilol 6.25 MG Tablet PO ×2 (08:43→21:50)
[2023-07-04] MEDS: Lisinopril 2.5 MG Tablet PO (08:43)
[2023-07-04] MEDS: Cholecalciferol (VIT D3) 25 MCG TABLET (1,000 UNITS) 50 MCG PO (08:44)
[2023-07-04] MEDS: Ascorbic Acid 500 MG Tablet PO (08:45)
--- NOTE | 2023-07-04 09:29 | PCM.PN.INT ---
Assessment & Plan Assessment/Plan (1) Dyspnea on exertion: PLAN: Plan RECOMMENDATIONS: 1. Supplemental oxygen for saturations greater than 90%. 2. Encourage incentive spirometer use and mobilize patient as tolerated. 3. Recommend transfer to tertiary care facility to be evaluated by congenital heart/pulmonary hypertension specialist. IMPRESSIONS: 1. Shortness of breath and hypoxemia The patient initially presented to the hospital with cough and dyspnea in the setting of an NSTEMI. He was taken for cardiac catheterization, which apparently showed no culprit lesions. CTA was negative for PE. There was no significant pulmonary parenchymal abnormalities. Despite this, the patient remained hypoxemic. Follow-up echocardiogram with bubble study demonstrated a severely dilated RV with severe global RV systolic dysfunction, pulmonary artery systolic pressure of 42 mmHg and a patent foramen ovale. The patient continues to desaturate with any form of exertion. With this in mind, recommend referral to a tertiary care facility to be evaluated by a congenital heart/pulmonary hypertension specialist. The patient is at high risk for further clinical decompensation. He is awaiting transfer to [facility]. 2. NSTEMI Management per cardiology recommendations. 3. History of metastatic prostate cancer/history of VTE /hypertension/obesity Complicates care, management, recovery and prognosis. Continue home medications as indicated. This note was generated with [employer] dictation software. It may contain incorrect words, spelling, and punctuation that were not noted in checking the note before signing. Subjective Subjective The patient was seen and examined at the bedside this morning. Events from the last 24 hours have been reviewed. The patient is currently afebrile, hemodynamically stable and maintaining appropriate oxygen saturations on heated high flow with an FiO2 requirement of 50% and flow rate of 55 L/min. The patient is more short of breath with increased work of breathing. He readily desaturated with ambulation yesterday in the hallway. Although the patient was accepted in [facility] for transfer, there is no bed yet available. Objective Data Objective Data The patient's most recent lab work, culture data and imaging studies have all been personally reviewed. Vital Signs: Vital Signs Temp Pulse Resp BP Pulse Ox O2 Del Method O2 Flow Rate 97.6 F L 91 24 H 127/85 H 92 Airvo 55 07/04/23 08:03 07/04/23 08:03 07/04/23 08:03 07/04/23 08:03 07/04/23 08:25 07/04/23 08:25 07/04/23 08:25 FiO2 50 07/04/23 08:25 Oxygen Flow Rate (L/min) [ 8 AMBULATING with Oxygen #1] Oxygen Flow Rate (L/min) [At 6 REST with Oxygen] Oxygen Flow Rate (L/min) 55 Oxygen Delivery Method Airvo Weight: 236 lb 1.6 oz Body Mass Index (BMI) 41.8 Intake & Output: Intake and Output for Last 24 Hours 07/02/23 07/03/23 07/04/23 23:59 23:59 23:59 Intake Total 1928.33 / 2248.33 680 / 680 Output Total 600 / 600 Balance 1928.33 / 2248.33 680 / 680 -600 / -600 Lab / Micro Data Attestation: I reviewed the patient's lab results. 07/04/23 06:10 07/04/23 06:10 Labs: Laboratory Results - last 24 hr 07/04/23 06:10: WBC 12.1 H, RBC 4.61, Hgb 13.2, Hct 40.0, MCV 86.8, MCH 28.6, MCHC 33.0, RDW Std Deviation 46.5 H, RDW Coeff of [place] 15.1 H, Plt Count 137 L, MPV 12.4 H, Immature Gran % (Auto) 2.400 H, Neut % (Auto) 76.9 H, Lymph % (Auto) 10.2 L, [place] % (Auto) 9.9, Eos % (Auto) 0.2, Baso % (Auto) 0.4, Absolute Neuts (auto) 9.3 H, Absolute Lymphs (auto) 1.23, Nucleated RBC % 0, Sodium 136, Potassium 4.5, Chloride 108 H, Carbon Dioxide 21.0, Anion Gap 7, BUN 30 H, Creatinine 1.06, Estim Creat Clear Calc 62.96, Est GFR (MDRD) Af Amer 94, Est GFR (MDRD) Non-Af 78, BUN/Creatinine Ratio 28.3 H, Glucose 108 H, Calcium 8.5, Total Bilirubin 1.60 H, AST 99 H, ALT 51, Alkaline Phosphatase 318 H, Total Protein 7.3, Albumin 2.7 L, Globulin 4.6 H, Albumin/Globulin Ratio 0.6 L Micro: Microbiology 07/01/23 16:52 Mucosa - Nose Coronavirus COVID-19 PCR - Final 07/01/23 16:52 Mucosa - Nose Respiratory Panel (PCR) - Final 06/28/23 11:10 Nasal Secretion SARS-CoV-2 & FLU Antigen (Rapid) - Final ABG Data ABG results: ABG 07/03/23 23:55 Specimen Type ART Sample Site L Radial pH 7.44 Bicarbonate Actual 20.4 L Total CO2 21 Base Excess -4 L O2 Saturation 93 L ABG pCO2 29.9 L ABG pO2 65 L Mayank Test Positive O2 Delivery Device HFNC Liter Flow 15.0 Radiography Diagnostic Testing: Radiology Impression Echocardiogram 07/02/23 07:44 Interpretation Summary The estimated ejection fraction is 60 %. Severely dilated right ventricle. Severe global right ventricular systolic dysfunction. Right ventricular systolic pressure estimated to be 42 mmHg. The right atrium is moderately enlarged. Bubble contrast study is positive for PFO. Ordering Physician: Enrique Batista Referring Physician: SCOOTER PCP Performed By: Jazmyn Pedraza RCS Rhythm Strip Rhythm Strip: Sinus Tach Rate: 101 Ectopy: None Physical Exam Const alert General Appearance: cooperative and ill appearing HEENT normocephalic and head/scalp atraumatic Eyes PERRL, EOMs intact bilaterally and conjunctivae normal Neck supple General: trachea midline Chest inspection of chest normal Resp Effort and Inspection: tachypneic and labored Auscultation: Negative for rales, rhonchi or wheezes Cardio regular rate and regular rhythm GI normal to inspection, nondistended, normoactive bowel sounds Extremity no clubbing, cyanosis or edema Skin no rashes or lesions noted Neuro oriented x3, CN's II-XII intact bilaterally and moves all extremities Psych cooperative and affect normal Charges/Coding Visit Charges Inpatient E&M: 87644 Subs Hosp L2
[2023-07-04] MEDS: Furosemide 40 MG/4 ML Vial IV (09:32)
[2023-07-04] MEDS: HYDROmorphone 0.5 MG/0.5 ML SYRINGE IV ×2 (10:17→14:53)
[2023-07-04] MEDS: Ketorolac 15 MG/ML Vial IV (10:18)
[2023-07-04] MEDS: guaiFENesin 1,200 MG Tablet 1200 MG PO ×2 (10:18→21:51)
--- NOTE | 2023-07-04 11:21 | NURSING ---
I spoke with Salome at [facility] transfer line she stated they are still waiting on a bed. She stated she is hopeful to have a bed this weekend but she was thinking it would not be today.
--- NOTE | 2023-07-04 11:56 | CHAPLAIN ---
Type of Pastoral Visit ___ Initial Visit _x__ Follow-up Visit ___ On-call Visit ___ General Patient Visit ___ Spiritual Assessment ___ Family Conference ___ Bereavement ___ Rapid Response ___ Code Blue ___ Other (describe below) Pastoral Care Referral From _x__ Patient ___ Family ___ Nurse ___ Physician ___ Road Inspector ___ Shop Hand ___ Other (describe below) Sacrament/Intervention _x__ Active listening ___ Anointing ___ Congregational ___ Bereavement ___ Communion ___ Bree exploration ___ ___ Life review _x__ Prayer ___ Reconciliation ___ Sacrament of Sick _x__ Supportive presence ___ Wedding ___ Other (describe below) Pastoral Comments follow up to this [place] and without family support present; review with patient how he is coping, his feelings, and his hopes; pt states that he is still waiting for a bed in another hospital; pt is unable to put his feelings into words and again speaks of it is what it is and what can you do? and it just happens like this and you are not able to change it; asked about family and pt has not talked to them in last day or two; pt denies need of anything else; pt does accept prayers for his support
--- NOTE | 2023-07-04 15:07 | CASEMGMT ---
Social Work LAN contacted by [facility] registration, patient's friend is here and inquiring about seeing patient as well as plan if patient passes away. LAN met with patient and introduced herself and role as [facility] SW. Patient lying on hospital bed and agreeable to speak with SW. SW informed patient his friend, Corey, is here and inquiring about visiting patient; patient agreeable to friend coming up. LAN met with patient's friend per his request and introduced self and role as [facility] SW. Patient's friend inquiring about the plan for patient as well as what happens if patient passes. SW explained the plan is to transfer patient to [facility] when a bed is available. SW also explained patient's would be the person to make decisions regarding patient passing. SW explained patient's RN or MD would need to address medical questions, patient's friend voiced understanding. SW informed patient's RN and MD White patient's friend was here and had questions. Per MD, patient's can be contacted at [phone]. Patient's and MD have discussed plan for patient, MD to follow up. Dawn Salamanca MSW, LUCERO
[2023-07-04] MEDS: Rivaroxaban 20 MG Tablet PO (16:44)
[2023-07-04] MEDS: Sodium Chloride 0.65% 1 SPRAY SPRAY.BTL NASAL (21:51)
[2023-07-04] MEDS: Atorvastatin Calcium 40 MG Tablet PO (21:51)
[2023-07-05] VITALS (36 sets, daily range): BP systolic 94–136; BP diastolic 62–95; PULSE 86–100; RESP 22–32; TEMP 35.9–36.6; O2SAT 31–97
[2023-07-05] MEDS: 0.9% Saline Lock 10 ML Syringe IV ×3 (01:03→15:52)
[2023-07-05] MEDS: HYDROmorphone 0.5 MG/0.5 ML SYRINGE IV ×3 (01:03→15:52)
[2023-07-05] MEDS: oxyCODONE 5 MG Tablet PO (04:57)
[2023-07-05] MEDS: Sodium Chloride 0.65% 1 SPRAY SPRAY.BTL NASAL (04:59)
--- NOTE | 2023-07-05 06:07 | PCM.PN.HOSP ---
Reason for Visit Reason for Visit: Diagnoses Malignant neoplasm of prostate (06/28/23) Secondary malignant neoplasm of bone (06/28/23) Essential (primary) hypertension (06/28/23) Non-ST elevation (NSTEMI) myocardial infarction (06/28/23) Atherosclerotic heart disease of [place] coronary artery without angina pectoris (06/28/23) Cor pulmonale (chronic) (06/28/23) Other forms of dyspnea (06/28/23) Subjective Subjective Patient with no acute events overnight per self and per nursing report. He does report feeling fatigued and from discussion with him and his spouse he has not had great intake. Encouraged him to take at least a little bit of protein intake which she likes but to assure that he does have a little bit of each meal. He does feel short of breath especially with any activity patient denies fevers, chills, nausea, emesis, abdominal pain, chest pain. Objective Data Objective Data Vital Signs: Vital Signs Temp Pulse Resp BP Pulse Ox O2 Del Method O2 Flow Rate 97.3 F L 91 24 H 104/78 93 Airvo 55 07/05/23 06:00 07/05/23 06:00 07/05/23 06:00 07/05/23 06:00 07/05/23 06:00 07/05/23 06:00 07/05/23 06:00 FiO2 88 07/05/23 06:00 Oxygen Flow Rate (L/min) [ 8 AMBULATING with Oxygen #1] Oxygen Flow Rate (L/min) [At 6 REST with Oxygen] Oxygen Flow Rate (L/min) 55 Oxygen Delivery Method Airvo Weight: 236 lb 1.6 oz Body Mass Index (BMI) 41.8 Intake & Output: Intake and Output for Last 24 Hours 07/03/23 07/04/23 07/05/23 23:59 23:59 23:59 Intake Total 680 / 680 240 / 240 Output Total 1900 / 1900 250 / 250 Balance 680 / 680 -1660 / -1660 -250 / -250 Lab / Micro Data 07/05/23 05:33 07/05/23 05:33 Labs: Laboratory Results - last 24 hr 07/04/23 06:10: WBC 12.1 H, RBC 4.61, Hgb 13.2, Hct 40.0, MCV 86.8, MCH 28.6, MCHC 33.0, RDW Std Deviation 46.5 H, RDW Coeff of [place] 15.1 H, Plt Count 137 L, MPV 12.4 H, Immature Gran % (Auto) 2.400 H, Neut % (Auto) 76.9 H, Lymph % (Auto) 10.2 L, [place] % (Auto) 9.9, Eos % (Auto) 0.2, Baso % (Auto) 0.4, Absolute Neuts (auto) 9.3 H, Absolute Lymphs (auto) 1.23, Nucleated RBC % 0, Sodium 136, Potassium 4.5, Chloride 108 H, Carbon Dioxide 21.0, Anion Gap 7, BUN 30 H, Creatinine 1.06, Estim Creat Clear Calc 62.96, Est GFR (MDRD) Af Amer 94, Est GFR (MDRD) Non-Af 78, BUN/Creatinine Ratio 28.3 H, Glucose 108 H, Calcium 8.5, Total Bilirubin 1.60 H, AST 99 H, ALT 51, Alkaline Phosphatase 318 H, Total Protein 7.3, Albumin 2.7 L, Globulin 4.6 H, Albumin/Globulin Ratio 0.6 L Micro: Microbiology 07/01/23 16:52 Mucosa - Nose Coronavirus COVID-19 PCR - Final 07/01/23 16:52 Mucosa - Nose Respiratory Panel (PCR) - Final 06/28/23 11:10 Nasal Secretion SARS-CoV-2 & FLU Antigen (Rapid) - Final Rhythm Strip Rhythm Strip: Sinus Tach Rate: 101 Ectopy: None Physical Exam Narrative Physical Examination: General: Awake, alert, oriented x 3 and cooperative, laying in the PCU bed, fatigued, remains on Airvo, less well-appearing the day prior, discussed still awaiting transfer bed at [facility]. Skin: Normal color, normal turgor, no icterus, no cyanosis except occasional staged ecchymoses likely from lab draws to the extremities. HEENT: AT/NC, EOMI, PERRLA, mildly dry MM, Airvo in place. Lungs: Noted, greater bases, mildly increased respiratory rate but no obvious distress, Airvo in place, no appreciated rales, rhonchi or wheezing appreciated. Heart: Regular rate and rhythm; no gallop, rub audible. Abdomen: Soft, NTTP, ND, normal BS. Extremities: No cyanosis, clubbing, or edema. Neurological: Patient awake, alert, oriented as noted, cognitive function intact; pupils equally reactive to light and accommodation, cranial nerves II-XII grossly normal, moving all 4 extremities, no focal deficits, strength severely global decrease secondary to acute presentation, worsening respiratory status and underlying metastatic cancer with chronic pain worse today than days prior. Psychiatric: Affect appears fatigued, no acute evidence of depressive or anxiety feelings. Assessment & Plan Assessment/Plan (1) Non-ST elevation CA (NSTEMI): PLAN: Plan The patient is a 52 y/o M w/ PMHx: Morbid obesity, Metastatic Prostate Cancer, Hx DVT/PE, HTN who presents to the [facility] ED on 06/28/23 with history of cough and dyspnea with no specific chest discomfort but increased fatigue and malaise as well as lightheadedness worse with activity prompting eventual ED evaluation. #1. 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 Repeat chest x-rays with no obvious acute cardiopulmonary findings. As noted above limited ECHO with bubble with noted EF 60%, severely dilated RV, severe global RV systolic dysfunction, RV systolic pressure estimated 42 mmHg, moderately enlarged RA with bubble contrast study positive for PFO. Unfortunately 07/03/2023 oxygenation trial with significant hypoxia and symptomatic exertional dyspnea therefore per discussion with pulmonary medicine/critical care, cardiology decision at this time to transfer patient to tertiary care facility to be evaluated by congenital heart/pulmonary hypertensive specialist. Patient accepted at [facility] under Pulmonary HTN service with Cardiology consultation, discussed case with both services, accepted under Dr. Hancokc, form signed and placed on the chart. 07/03/23 overnight with increased oxygen needs, placed on BIPAP initially however transition to Airvo with pulse dose IV Lasix x1 again and per discussion with pulmonary critical care will attempt a defer BiPAP and further Lasix as able as this may be exacerbating his shunt and worsening his situation. Updated [facility] and at this time awaiting callback from the MICU team given his Airvo high flow needs at this time. 07/05/2023 CBC with WC 13.1, hemoglobin 13.1, platelet 137 with increased immature granulocytes and left shift. Currently attempting to maintain saturations greater than 90%. #2. Acute NSTEMI suspected more likely type II with demand with #2 as noted: EKG in ED w/ sinus tachycardia with nonspecific T wave inversions with no acute evidence of ischemia, chest x-ray unremarkable, CTPA with no evidence of PE with findings suggestive of metastatic deposits involving the cervical and visualized thoracic vertebrae, Trop elevated, 293->251->288. Maintained in the PCU, maintained on a monitored bed, initiated on a heparin drip until postcardiac catheterization and then transition 07/01/2023 2 appropriate dosing of Xarelto, 06/28/2023 echocardiogram with EF 55 to 60%, overall normal LV systolic function, mild TR, contrast echo performed, maintained on aspirin, continue medical management w/ asa, added moderate dose BB per Cardiology recommendation but defer to their preference, added atorvastatin 40 mg daily per Cardiology recommendation but defer to their preference, FLP w/ TG 77, TChol 106, LDL 39, VLDL 15, HDL 52. Mag requested. Cardiology consulted and s/p 07/01/23 cardiac catheterization with no marked cardiac disease with noted approximate 30% proximal/mid RCA disease with recommendation of risk factor modification and medical therapy. Given increased oxygen requirement Pulmonary ordered limited ECHO with bubble with noted EF 60%, severely dilated RV, severe global RV systolic dysfunction, RV systolic pressure estimated 42 mmHg, moderately enlarged RA with bubble contrast study positive for PFO. Unfortunately 07/03/2023 oxygenation trial with significant hypoxia and symptomatic exertional dyspnea therefore per discussion with pulmonary medicine/critical care, cardiology decision at this time to transfer patient to tertiary care facility to be evaluated by congenital heart/pulmonary hypertensive specialist with acceptance as noted above #1. #3. Metastatic prostate cancer: Noted to be to the bone as well as from CT imaging to the spine, suspect patient to transient paresthesias likely related, CT of the head with no acute findings, reported surgical intervention approximately 1 year prior, per discussion with patient he already has follow-up oncological plan and deferred any further concept of MRI imaging of his spine given CTA findings as he is aware of these metastatic foci with planned initiation of treatment following his discharge. We will continue patient home prednisone therapy, holding abiraterone as not available and patient does not have his home regimen. Also secondary to chronic pain associated offered palliative consultation which patient declined at this time. Patient [facility] care team Dr. Moreland [phone] contacted and 07/03/23 evening discussed his current status and plan of care. #4. Chronic back pain w/ Metastatic Prostate CA w/ transient acute paresthesias LE: Improved, suspect unfortunately related with his metastatic cancer, CT head unremarkable, NIHSS 0 as resolved, continue evaluation #1 as noted. Per discussion with patient he already has follow-up oncological plan and deferred any further concept of MRI imaging of his spine given CTA findings as he is aware of these metastatic foci with planned initiation of treatment following his discharge. Also secondary to chronic pain associated offered palliative consultation which patient declined at this time. #4. Chronic normocytic anemia: Likely related with his underlying CA, admission Hgb 14.7, most recent repeat Hgb 07/03/22 Hgb 12.7-->07/03/23 Hgb 13.2-->07/04/23 Hgb 13.2--> 07/05/23 Hgb 13.1, stable. #5. History of VTE/DVT: s/p prior IVCF of note. Patient upon presentation Xarelto held with heparin drip however added back oral Xarelto 10/31/2023 at current dose which was discussed with pharmacy and they noted it could be transition to 20 mg daily as his cancer center had had him on 10 mg daily without restarting the loading section. Did discuss patient's anticoagulation with [facility] cancer team who is taking care of him and they noted when he presented to them they did perform CTPA as well as duplexes on his extremities and he had no PEs at that time and unfortunately had been taking Coumadin without checking INR because of cost therefore at that time they opted to place him on the prophylactic dose only since he had no active findings. #6. Hypertension: Continue home regimen including lisinopril, low-dose Coreg added per cardiology recommendation, PRN hydralazine. #7. Morbid Obesity: Weight loss and lifestyle changes encouraged. #8. DVT prophylaxis: Heparin drip transition to Xarelto 07/01/2023 20 mg daily. #9. CODE status: DNR-CCA, no intubation. Charges/Coding Visit Charges Inpatient E&M: 29340 Subs Hosp L2
[2023-07-05 06:20] LABS: Absolute Lymphocyte Count 1.31 X10^3/uL (0.83-4.51); Basophil# 0.06 X10^3/uL; Basophil% 0.5 % (0-1); Eosinophil# 0.02 X10^3/uL; Eosinophils% 0.2 % (0-5); Hematocrit 40.3 % (40-54); Hemoglobin 13.1 g/dL (13.0-16.5); Lymphocyte # 1.31 X10^3/ul (0.83-4.51); Mean Corp Hgb Conc 32.5 g/dL (32-36); Mean Corpuscular Hgb 28.4 pg (27.0-32.0); Mean Corpuscular Volume 87.2 fL (80-94); Mean Platelet Vol. 11.9 fl (6.2-12.0); Monocyte# 1.47 X10^3/uL; Monocyte% 11.2 % (0-10); NRBC Flagged by Analyzer 0 % (0-5); Neutrophil # 9.97 X10^3/uL (2.7-7.7); Platelet Count 137 K/mm3 (150-450); RBC Distribution Width CV 15.5 % (11.6-14.6); RBC Distribution Width SD 47.4 fl (35.1-43.9); Red Blood Count 4.62 M/mm3 (4.6-6.2); White Blood Count 13.1 K/mm3 (4.4-11.0)
[2023-07-05 06:55] LABS: ALB/GLOB Ratio 0.6 RATIO (0.9-2.4); AST(SGOT) 82 U/L (15-37); Alanine Aminotransfer ALT/SGPT 49 U/L (16-61); Albumin, Serum 2.6 g/dL (3.2-5.0); Alkaline Phosphatase 293 U/L (45-117); Anion Gap 8 (5-15); BUN 35 mg/dL (7-18); BUN/Creat Ratio 30.7 RATIO (10-20); Calcium,Total 8.5 mg/dL (8.5-10.1); Chloride 105 mmol/L (98-107); Creatinine, Serum 1.14 mg/dL (0.70-1.30); EST Glomerular Filtration Rate 72 mL/min (>60); Est Glom Filt Rate - Afr Amer 87 mL/min (>60); Estimated Creatinine Clearance 58.54 ml/min; Globulin 4.7 g/dL (2.2-4.2); Glucose 121 mg/dL (74-106); Potassium 4.7 mmol/L (3.5-5.1); Protein, Total 7.3 g/dL (6.4-8.2); Sodium Level 134 mmol/L (136-145)
[2023-07-05] MEDS: Budesonide Respules 0.5 MG/2 ML AMPUL.NEB. INHALATION ×2 (06:55→23:32)
[2023-07-05] MEDS: Albuterol 2.5 MG/3 ML VIAL.NEB. INHALATION ×2 (06:55→23:32)
--- NOTE | 2023-07-05 07:31 | CPS ---
patient recieved prn treatment due to sob.
--- NOTE | 2023-07-05 07:33 | CPS ---
patient found with oxygen at 100%. Patient weaned down to 90%. Water bag is half full.
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
[2023-07-05] MEDS: predniSONE 5 MG Tablet PO ×2 (09:15→17:44)
[2023-07-05] MEDS: Aspirin 81 MG TAB.CHEW PO (09:15)
[2023-07-05] MEDS: Cholecalciferol (VIT D3) 25 MCG TABLET (1,000 UNITS) 50 MCG PO (11:54)
[2023-07-05] MEDS: Lisinopril 2.5 MG Tablet PO (11:54)
[2023-07-05] MEDS: Carvedilol 6.25 MG Tablet PO ×2 (11:54→21:54)
[2023-07-05] MEDS: Magnesium Chloride 64 MG Delay Rel.Tablet 128 MG PO (11:54)
[2023-07-05] MEDS: guaiFENesin 1,200 MG Tablet 1200 MG PO ×2 (11:54→21:54)
[2023-07-05] MEDS: Ascorbic Acid 500 MG Tablet PO (11:54)
[2023-07-05] MEDS: Rivaroxaban 20 MG Tablet PO (17:43)
[2023-07-05] MEDS: Atorvastatin Calcium 40 MG Tablet PO (21:54)
[2023-07-06] VITALS (13 sets, daily range): BP systolic 107–123; BP diastolic 65–104; PULSE 90–869; RESP 12–35; TEMP 35.9–36.6; O2SAT 31–92
--- NOTE | 2023-07-06 04:51 | CPS ---
pt took odd cpap and immediately desatted, tried putting him on AIRVO but spo2 would not go over 87% RR 30 cpap reapplied 13cmHoH 100% Fio2
[2023-07-06 06:23] LABS: Allen Test Positive; Base Excess -5 mmol/L (-2 to +2); Bicarbonate 18.9 mmol/L (22-26); Blood Gas Specimen Type ART; O2 Delivery Device CPAP; PEEP 13; PO2 62 mmHG (75-100); SITE R Radial; SO2 93 % (95-99); Total Carbon Dioxide 20 mmol/L; pCO2 25.8 mmHg (35-45); pH 7.47 (7.35-7.45)
--- NOTE | 2023-07-06 06:28 | PCM.PN.HOSP ---
Reason for Visit Reason for Visit: Diagnoses Malignant neoplasm of prostate (06/28/23) Secondary malignant neoplasm of bone (06/28/23) Essential (primary) hypertension (06/28/23) Non-ST elevation (NSTEMI) myocardial infarction (06/28/23) Atherosclerotic heart disease of [place] coronary artery without angina pectoris (06/28/23) Cor pulmonale (chronic) (06/28/23) Other forms of dyspnea (06/28/23) Subjective Subjective Patient overnight worsened, attempted BIPAP but did not improve, transitioned to CPAP with alteration of settings with improvement of oxygenation 91-92%; however this morning unfortunately continued to desaturate and even with these changes was difficult to appropriately oxygenate maintaining in the 80s with significant dyspnea, worse with exertion, fatigue and malaise as well as decreased oral intake over the last 24 hours. Patient fatigued, lethargic but still answering questions appropriately and following lengthy discussion did state that he was amenable to be intubated only short-term to see if this would assist him but was to remain a DNR CCA still. Patient doubt any evidence of fevers, chills, nausea, emesis, abdominal pain, chest pain. Objective Data Objective Data Vital Signs: Vital Signs Temp Pulse Resp BP Pulse Ox O2 Del Method O2 Flow Rate 96.7 F L 95 33 H 116/88 H 91 CPAP 55 07/05/23 16:00 07/06/23 06:00 07/06/23 06:00 07/06/23 06:00 07/06/23 06:00 07/06/23 06:00 07/06/23 04:24 FiO2 91 07/06/23 04:24 Oxygen Flow Rate (L/min) [ 8 AMBULATING with Oxygen #1] Oxygen Flow Rate (L/min) [At 6 REST with Oxygen] Oxygen Flow Rate (L/min) 55 Oxygen Delivery Method CPAP Weight: 236 lb 1.6 oz Body Mass Index (BMI) 41.8 Intake & Output: Intake and Output for Last 24 Hours 07/04/23 07/05/23 07/06/23 23:59 23:59 23:59 Intake Total 240 / 240 Output Total 1900 / 1900 650 / 650 0 / 0 Balance -1660 / -1660 -650 / -650 0 / 0 Lab / Micro Data 07/06/23 06:20 07/06/23 06:20 Labs: Laboratory Results - last 24 hr 07/05/23 05:33: Sodium 134 L, Potassium 4.7, Chloride 105, Carbon Dioxide 21.0, Anion Gap 8, BUN 35 H, Creatinine 1.14, Estim Creat Clear Calc 58.54, Est GFR (MDRD) Af Amer 87, Est GFR (MDRD) Non-Af 72, BUN/Creatinine Ratio 30.7 H, Glucose 121 H, Calcium 8.5, Total Bilirubin 1.70 H, AST 82 H, ALT 49, Alkaline Phosphatase 293 H, Total Protein 7.3, Albumin 2.6 L, Globulin 4.7 H, Albumin/Globulin Ratio 0.6 L Micro: Microbiology 07/01/23 16:52 Mucosa - Nose Coronavirus COVID-19 PCR - Final 07/01/23 16:52 Mucosa - Nose Respiratory Panel (PCR) - Final 06/28/23 11:10 Nasal Secretion SARS-CoV-2 & FLU Antigen (Rapid) - Final ABG Data ABG results: ABG 07/06/23 06:19 Specimen Type ART Sample Site R Radial pH 7.47 H Bicarbonate Actual 18.9 L Total CO2 20 Base Excess -5 L O2 Saturation 93 L O2 % 100.0 ABG pCO2 25.8 L ABG pO2 62 L Mayank Test Positive O2 Delivery Device CPAP POC PEEP 13 Clinical Comments 13 Cpap. 100. fio2 Rhythm Strip Rhythm Strip: Sinus Tach Rate: 101 Ectopy: None Physical Exam Narrative Physical Examination: General: Awake, alert currently to myself and to questioning, oriented self, place and current events but again mildly encephalopathic because of hypoxia, remains cooperative, increased work of breathing, accessory muscle usage, and evident respiratory distress/failure, currently from discussions amenable to now being intubated but will remain DNR CCA until able to get him to the care facility. Skin: Normal color, normal turgor, no icterus, no cyanosis except occasional staged ecchymoses likely from lab draws to the extremities. HEENT: AT/NC, EOMI, PERRLA, MM, breathing mask in place, evident respiratory failure, preparing for intubation. Lungs: Significantly diminished, more so than day prior, increased respiratory rate, accessory muscle usage, evident respiratory distress/failure, no appreciated current rales, rhonchi or wheezing. Heart: Tachycardic with regular rhythm; no gallop, rub audible. Abdomen: Soft, NTTP, ND, distant hypoactive BS. Extremities: No cyanosis, clubbing, or edema. Neurological: Patient awake, alert, oriented as noted but fatigued and mildly encephalopathic but given answering orientation questions appropriately did discuss intubation and patient is noted was amenable but did to remain DNR CCA, pupils equally reactive to light and accommodation, cranial nerves grossly normal, moving all 4 extremities, severely global decrease secondary to underlying history and respiratory failure. Psychiatric: Affect appears to be in distress, respiratory status significantly worsened, no acute evidence of depressive or anxiety feelings. Assessment & Plan Assessment/Plan (1) Non-ST elevation RI (NSTEMI): PLAN: Plan The patient is a 52 y/o M w/ PMHx: Morbid obesity, Metastatic Prostate Cancer, Hx DVT/PE, HTN who presents to the [facility] ED on 06/28/23 with history of cough and dyspnea with no specific chest discomfort but increased fatigue and malaise as well as lightheadedness worse with activity prompting eventual ED evaluation. #1. 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 Repeat chest x-rays with no obvious acute cardiopulmonary findings. As noted above limited ECHO with bubble with noted EF 60%, severely dilated RV, severe global RV systolic dysfunction, RV systolic pressure estimated 42 mmHg, moderately enlarged RA with bubble contrast study positive for PFO. Unfortunately 07/03/2023 oxygenation trial with significant hypoxia and symptomatic exertional dyspnea therefore per discussion with pulmonary medicine/critical care, cardiology decision at this time to transfer patient to tertiary care facility to be evaluated by congenital heart/pulmonary hypertensive specialist. Patient accepted at [facility] under Pulmonary HTN service with Cardiology consultation, discussed case with both services, accepted under Dr. Hancock, form signed and placed on the chart. 07/03/23 overnight with increased oxygen needs, placed on BIPAP initially however transition to Airvo with pulse dose IV Lasix x1 again and per discussion with pulmonary critical care will attempt a defer BiPAP and further Lasix as able as this may be exacerbating his shunt and worsening his situation. 07/05/23 Updated [facility] w/ planned MICU transition once bed available and they aware of his declining status. 07/05/23-07/06/23 worsened, reattempted BIPAP, unable to tolerate, transitioned to CPAP. 07/06/2023 given significantly worsened status discussed CODE STATUS again and patient now amenable to only intubation with continued DNR CCA status and this would be short-term only until able to transition to skilled facility. Given this preparing for intubation now and transition the ice you with also update being given to the MICU at [facility]. #2. Acute NSTEMI suspected more likely type II with demand with #2 as noted: EKG in ED w/ sinus tachycardia with nonspecific T wave inversions with no acute evidence of ischemia, chest x-ray unremarkable, CTPA with no evidence of PE with findings suggestive of metastatic deposits involving the cervical and visualized thoracic vertebrae, Trop elevated, 293->251->288. Maintained in the PCU, maintained on a monitored bed, initiated on a heparin drip until postcardiac catheterization and then transition 07/01/2023 2 appropriate dosing of Xarelto, 06/28/2023 echocardiogram with EF 55 to 60%, overall normal LV systolic function, mild TR, contrast echo performed, maintained on aspirin, continue medical management w/ asa, added moderate dose BB per Cardiology recommendation but defer to their preference, added atorvastatin 40 mg daily per Cardiology recommendation but defer to their preference, FLP w/ TG 77, TChol 106, LDL 39, VLDL 15, HDL 52. Mag requested. Cardiology consulted and s/p 07/01/23 cardiac catheterization with no marked cardiac disease with noted approximate 30% proximal/mid RCA disease with recommendation of risk factor modification and medical therapy. Given increased oxygen requirement Pulmonary ordered limited ECHO with bubble with noted EF 60%, severely dilated RV, severe global RV systolic dysfunction, RV systolic pressure estimated 42 mmHg, moderately enlarged RA with bubble contrast study positive for PFO. Unfortunately 07/03/2023 oxygenation trial with significant hypoxia and symptomatic exertional dyspnea therefore per discussion with pulmonary medicine/critical care, cardiology decision at this time to transfer patient to tertiary care facility to be evaluated by congenital heart/pulmonary hypertensive specialist with acceptance as noted above #1. Theology updated about his worsening status. #3. Metastatic prostate cancer: Noted to be to the bone as well as from CT imaging to the spine, suspect patient to transient paresthesias likely related, CT of the head with no acute findings, reported surgical intervention approximately 1 year prior, per discussion with patient he already has follow-up oncological plan and deferred any further concept of MRI imaging of his spine given CTA findings as he is aware of these metastatic foci with planned initiation of treatment following his discharge. We will continue patient home prednisone therapy, holding abiraterone as not available and patient does not have his home regimen. Also secondary to chronic pain associated offered palliative consultation which patient declined at this time. Patient [facility] care team Dr. Moreland [phone] contacted 07/03/23 and updated. Given his worsening status as noted above will contact and also update . #4. Chronic back pain w/ Metastatic Prostate CA w/ transient acute paresthesias LE: Improved, suspect unfortunately related with his metastatic cancer, CT head unremarkable, NIHSS 0 as resolved, continue evaluation #1 as noted. Per discussion with patient he already has follow-up oncological plan and deferred any further concept of MRI imaging of his spine given CTA findings as he is aware of these metastatic foci with planned initiation of treatment following his discharge. Also secondary to chronic pain associated offered palliative consultation which patient declined at this time. #4. Chronic normocytic anemia: Likely related with his underlying CA, admission Hgb 14.7, most recent repeat Hgb 07/03/22 Hgb 12.7-->07/06/23 Hgb 13.9, stable. #5. History of VTE/DVT: s/p prior IVCF of note. Patient upon presentation Xarelto held with heparin drip however added back oral Xarelto 10/31/2023 at current dose which was discussed with pharmacy and they noted it could be transition to 20 mg daily as his cancer center had had him on 10 mg daily without restarting the loading section. Did discuss patient's anticoagulation with [facility] cancer team who is taking care of him and they noted when he presented to them they did perform CTPA as well as duplexes on his extremities and he had no PEs at that time and unfortunately had been taking Coumadin without checking INR because of cost therefore at that time they opted to place him on the prophylactic dose only since he had no active findings. #6. Hypertension: Continue home regimen including lisinopril, low-dose Coreg added per cardiology recommendation, PRN hydralazine. #7. Morbid Obesity: Weight loss and lifestyle changes encouraged. #8. DVT prophylaxis: Heparin drip transition to Xarelto 07/01/2023 20 mg daily. #9. CODE status: DNR-CCA, no intubation. Intubation Note: Patient with evidence of respiratory and/or impending distress. Medications administered: Succinylcholine, Versed, etomidate ETT size: 7.5 Patient intubated in standard fashion with visualization of the vocal cords and passage of the ETT although was difficult and did have to have assist with cricoid pressure. Positioning verified with auscultation appropriate color change. Post-intubation CXR requested and reviewed with ET tube in appropriate position. Patient with transition to ICU and did contact Dr. Batista given severity of his current status and difficult clinical history with agreement for full sedation and attempt to paralyze to see if this would assist as ideally would like to avoid significantly increased PEEP. Charges/Coding Visit Charges Inpatient E&M: 03413 Subs Hosp L3 Procedures Hospitalists Procedures: 92349 Insert Emergency Airway
[2023-07-06 07:05] LABS: Absolute Neutrophil Count 10.4 X10^3/uL (2.0-7.7); Basophil# 0.05 X10^3/uL; Basophil% 0.4 % (0-1); Eosinophil# 0.02 X10^3/uL; Eosinophils% 0.1 % (0-5); Hematocrit 42.3 % (40-54); Hemoglobin 13.9 g/dL (13.0-16.5); Mean Corp Hgb Conc 32.9 g/dL (32-36); Mean Corpuscular Hgb 28.6 pg (27.0-32.0); Mean Platelet Vol. 12.2 fl (6.2-12.0); Monocyte# 1.39 X10^3/uL; Monocyte% 10.4 % (0-10); NRBC Flagged by Analyzer 0 % (0-5); Neutrophil # 10.42 X10^3/uL (2.7-7.7); Platelet Count 158 K/mm3 (150-450); RBC Distribution Width CV 15.5 % (11.6-14.6); RBC Distribution Width SD 47.7 fl (35.1-43.9); Red Blood Count 4.86 M/mm3 (4.6-6.2); White Blood Count 13.4 K/mm3 (4.4-11.0)
[2023-07-06] MEDS: Budesonide Respules 0.5 MG/2 ML AMPUL.NEB. INHALATION (07:13)
[2023-07-06 07:59] LABS: ALB/GLOB Ratio 0.5 RATIO (0.9-2.4); AST(SGOT) 131 U/L (15-37); Alanine Aminotransfer ALT/SGPT 66 U/L (16-61); Albumin, Serum 2.7 g/dL (3.2-5.0); Alkaline Phosphatase 313 U/L (45-117); Anion Gap 9 (5-15); BUN 36 mg/dL (7-18); BUN/Creat Ratio 34.3 RATIO (10-20); Calcium,Total 9.1 mg/dL (8.5-10.1); Chloride 105 mmol/L (98-107); Creatinine, Serum 1.05 mg/dL (0.70-1.30); EST Glomerular Filtration Rate 79 mL/min (>60); Est Glom Filt Rate - Afr Amer 95 mL/min (>60); Estimated Creatinine Clearance 63.56 ml/min; Globulin 5.2 g/dL (2.2-4.2); Glucose 128 mg/dL (74-106); Protein, Total 7.9 g/dL (6.4-8.2); Sodium Level 135 mmol/L (136-145)
[2023-07-06] MEDS: clonazePAM 0.5 MG Tablet PO (08:21)
--- NOTE | 2023-07-06 09:15 | RAD_ITS ---
INDICATION: To confirm ET placement -- Call wet read to MD EXAMINATION/TECHNIQUE: X-RAY - XR Chest 1 View COMPARISON: Prior studies dated: CT dated June 28, 2023 and radiograph dated July 02, 2023 FINDINGS: LINES/DEVICES: There is a endotracheal tube in place terminating 4.1 cm above the cora. LUNGS: There are few left basilar streaky opacities. No pneumothorax. MEDIASTINUM AND CARDIOVASCULAR STRUCTURES: Cardiac silhouette not enlarged. Central airways and mediastinal contour are unremarkable. BONES AND SOFT TISSUES: There is a stable sclerotic focus within the left posterior seventh rib and left proximal humerus. RAD/Chest 1 View (Portable) IMPRESSION: Endotracheal tube terminating 4.1 cm above the cora. Minimal left basilar atelectasis. Sclerotic foci within the left seventh rib and left proximal humerus may be secondary to a neoplastic process. Electronically Signed: Miguelina Curry MD at 10:47 EDT ,
--- NOTE | 2023-07-06 10:07 | EXP.PCM_ITS ---
Preliminary Cause of Preliminary Cause of Preliminary Cause of : #1. Acute Hypoxic Respiratory Failure secondary to Suspected Chronic Pulmonary Emboli with resulting Pulmonary HTN/Cor Pulmonale, PFO with shunt with eventual PEA Date of Admission: 06/28/23 Date of : 07/06/23 (Time of : 929) Principle Diagnosis Problem List: Discharge Diagnoses: #1. Acute Hypoxic Respiratory Failure secondary to Suspected Chronic Pulmonary Emboli with resulting Pulmonary HTN/Cor Pulmonale, PFO with shunt with eventual PEA #2. Acute NSTEMI suspected more likely type II with demand with #1 as noted #3. Metastatic prostate cancer to bone and spine #4. Chronic back pain w/ Metastatic Prostate CA w/ transient acute paresthesias LE, likely secondary to metastatic lesions #4. Chronic normocytic anemia #5. History of VTE/DVT #6. Hypertension #7. Morbid Obesity #8. CODE STATUS: DNR-CCA, no intubation-->07/06/23 allowed intubation with status DNR-CCA, allowance of short intubation trial Hospital Course The patient is a 52 y/o M w/ PMHx: Morbid obesity, Metastatic Prostate Cancer, Hx DVT/PE, HTN who presented to the [facility] ED on 06/28/23 with history of cough and dyspnea with no specific chest discomfort but increased fatigue and malaise as well as lightheadedness worse with activity prompting eventual ED evaluation. 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 CTPA with no obvious acute findings, rapid SARS COVID and influenza antigen negative, negative full viral panel and COVID PCR, 07/01/23 ATC budesonide therapy started, 07/01-07/02 overnight increased to 8L NC requirements but now weaned down to 6 again however oxygenation trial 07/03/2023 with notable hypoxia with ambulatory attempts, BNP obtained and very mildly elevated w/ lasix IV pulse dose Lasix administered without marked effect. Repeat chest x-rays with no obvious acute cardiopulmonary findings. As noted above limited ECHO with bubble with noted EF 60%, severely dilated RV, severe global RV systolic dysfunction, RV systolic pressure estimated 42 mmHg, moderately enlarged RA with bubble contrast study positive for PFO. Cardiac catheterization without any marked coronary disease noted. Unfortunately 07/03/2023 oxygenation trial with significant hypoxia and symptomatic exertional dyspnea therefore per discussion with pulmonary medicine/critical care, cardiology decision at this time to transfer patient to tertiary care facility to be evaluated by congenital heart/pulmonary hypertensive specialist. Patient accepted at [facility] under Pulmonary HTN service with Cardiology consultation, discussed case with both services, accepted under Dr. aHncock however given his continued increased oxygen needs he was eventually transitioned to MICU status still awaiting the bed with status updates to the [facility] transfer line frequently. 07/03/23 overnight with increased oxygen needs, placed on BIPAP initially however transition to Airvo with pulse dose IV Lasix x1 again and per discussion with pulmonary critical care will attempt a defer BiPAP and further Lasix as able as this may be exacerbating his shunt and worsening his situation. 07/05/23 Updated [facility] w/ planned MICU transition once bed available and they aware of his declining status. 07/05/23- 07/06/23 worsened, reattempted BIPAP, unable to tolerate, transitioned to CPAP. 07/06/2023 given significantly worsened status discussed CODE STATUS again and patient now amenable to only intubation with continued DNR CCA status and this would be short-term only until able to transition to skilled facility. Given this patient 07/06/23 was intubated and transitioned to the ICU. Unfortunately despite intubation his oxygenation was very difficult with even ETT placement verified with CXR also and elevated PEEPs attempted. Prior to ability to even be able to paralyze the patient became pulseless and was noted to be in PEA. Time of called at 09:30 per his CODE discussion wishes. During this time his spouse in [place] and his friend locally were updated about his status and plan of care as well as eventual outcome. The Senior [employer] was contacted given his out of country status. and friend did not want him transported back to [facility] and were amenable to body care in [place]. Contacted home locally and they were amenable to discussing with his currently address [facility] for covering cost of cremation which and friend locally stated he wanted. Patient transitioned following this decision to the [facility] [place] with planned transition to the home for cremation in the next 24 hours.
--- NOTE | 2023-07-06 10:17 | NURSING ---
Pt maxed out on CPAP and maintaining in high 70's at 0845. Dr Rankin notified and came to floor. Prepared to intubate. See [employer] documentation.
== END 2023-07-06 11:59 ==
LOC: ED 11:22 → PCU 12:30 → ICU 07-06 09:09
PROVIDERS: Internal Medicine; Internal Medicine Critical Care Medicine; Physician Assistant; Admitting Provider Family Medicine; Emergency Provider Emergency Medicine; Visit Provider Family Medicine
DX: I27.81 Cor pulmonale (chronic) (principal); I21.A1 Myocardial infarction type 2; J96.01 Acute respiratory failure with hypoxia; C79.51 Secondary malignant neoplasm of bone; I27.82 Chronic pulmonary embolism; Z68.41 Body mass index [BMI] 40.0-44.9, adult; Q21.12 Patent foramen ovale; C61 Malignant neoplasm of prostate; I27.20 Pulmonary hypertension, unspecified; E66.01 Morbid (severe) obesity due to excess calories; I10 Essential (primary) hypertension; I25.10 Atherosclerotic heart disease of native coronary artery without angina pectoris; Z79.01 Long term (current) use of anticoagulants; Z66 Do not resuscitate; Z20.822 Contact with and (suspected) exposure to COVID-19; G89.3 Neoplasm related pain (acute) (chronic); Z79.899 Other long term (current) drug therapy; Z86.718 Personal history of other venous thrombosis and embolism; Z85.46 Personal history of malignant neoplasm of prostate
CPT/HCPCS: 31500; 31720; 36415; 36600; 70450; 71045; 71046; 71275; 80048; 80053; 80061; 82803; 83735; 83880; 84484; 85025; 85610; 85730; 87428; 87633; 87635; 93005; 93306; 93308; 93458; 94002; 94003; 94640; 94660; 94762; 97162; 97167; 97802; 97803; 99152; 99153; 99252; 99283; J7030; J7040; Q9957; Q9967; A4216; C1769; C1894; C8929; G0463; J1940